=== PATIENT | female | born 1940 ===

== ENCOUNTER 2017-11-22 10:28 | Emergency (ER) | payer MEDICARE, MEDICAID ==
[2017-11-22 10:39] VITALS: BP 121/70; PULSE 83; RESP 20; TEMP 98.1; O2SAT 95
[2017-11-22 10:52] VITALS: BMI 28.3
[2017-11-22] MEDS ORDERED: Morphine 4 MG/ML VIAL ONE (11:21)
--- NOTE | 2017-11-22 11:25 | C.PDOC ---
History Of Present Illness 77-year-old female with known PMHx of sciatica, presents to the ED complaining of right-sided low back pain for 3 days. Pain radiates down the right leg and patient states it feels similar to prior episodes of sciatica. Patient reports no relief despite applying her Voltaren gel. Otherwise she denies any associated numbness, tingling, weakness, incontinence, dysuria, or abdominal pain. Time Seen by Provider: 11/22/17 11:02 Chief Complaint (Nursing): Back Pain History Per: Patient History/Exam Limitations: no limitations Onset/Duration Of Symptoms: Days (x3) Current Symptoms Are (Timing): Still Present Previous Symptoms: Back Pain Past Medical History Reviewed: Historical Data, Nursing Documentation, Vital Signs Vital Signs: Last Vital Signs Temp 98.1 F 11/22/17 10:38 Pulse 83 11/22/17 10:38 Resp 20 11/22/17 10:38 BP 121/70 11/22/17 10:38 Pulse Ox 95 11/22/17 12:24 - Medical History PMH: Arthritis, Asthma, Back Problems, Bronchitis, CAD, Cardiac Aneurysm, Colonic Polyps, COPD, Diabetes, Diverticulitis, Emphysema, Fractures (2 TOES ON LEFT FOOT FX. WITH FALL -NO SURGERY), Gastritis, HTN, Hypercholesterolemia, Osteoporosis, Pneumonia, Chronic Kidney Disease Surgical History: Appendectomy, Cholecystectomy, Coronary Stent, Endoscopy Family History: States: Unknown Family Hx - Social History Hx Tobacco Use: No Hx Alcohol Use: No Hx Substance Use: No - Immunization History Hx Tetanus Toxoid Vaccination: No Hx Influenza Vaccination: No Hx Pneumococcal Vaccination: Yes Review Of Systems Constitutional: Negative for: Fever, Chills Gastrointestinal: Negative for: Nausea, Vomiting, Abdominal Pain Genitourinary: Negative for: Dysuria, Frequency, Incontinence, Hematuria Musculoskeletal: Positive for: Back Pain Neurological: Negative for: Weakness, Numbness, Incoordination Physical Exam - Physical Exam Appears: Well, Non-toxic, No Acute Distress, Other (Obese) Skin: Warm, Dry Head: Atraumatic, Normacephalic Eye(s): bilateral: Normal Inspection Oral Mucosa: Moist Neck: Normal ROM Chest: Symmetrical Cardiovascular: Rhythm Regular, No Murmur Respiratory: Normal Breath Sounds, No Rales, No Rhonchi, No Wheezing Gastrointestinal/Abdominal: Bowel Sounds (active), Soft, No Tenderness, No Guarding Back: No CVA Tenderness, No Vertebral Tenderness, Paraspinal Tenderness (Right- sided paralumbar tenderness on palpation), Straight Leg Raising (+ right side at 45 degrees) Extremity: Bilateral: Atraumatic, Normal Color And Temperature, Normal ROM Neurological/Psych: Oriented x3, Normal Speech Gait: Steady ED Course And Treatment O2 Sat by Pulse Oximetry: 95 (RA) Pulse Ox Interpretation: Normal Medical Decision Making Medical Decision Making: Impression: Sciatica Plan: --Morphine 4 mg IM Progress/Updates: Patient continuing to complain of pain. Lidoderm patch applied. On re- examination, patient is resting comfortably in no acute distress. Patient reports improvement of symptoms. Patient feels comfortable going home and will be discharged. Patient given follow up instructions. Instructed to return to ER if symptoms worsen or new symptoms arise. Disposition Counseled Patient/Family Regarding: Diagnosis, Need For Followup - Disposition Referrals: Ry Suárez MD [Staff Provider] - Disposition: HOME/ ROUTINE Disposition Time: 12:23 Condition: STABLE Additional Instructions: Vaya a haque mdico o la clnica en 2-5 caicedo sin falta, para mas evaluacin. Volver a la monse de emergencia en cualquier momento si los sntomas persisten o empeoran. Instructions: Sciatica (DC) Forms: [employer] (Arabic) Print Language: CROATIAN - POA Present On Arrival: None - Clinical Impression Clinical Impression: Low back pain, Sciatica - PA / ENTERTAINER OR VARIETY ARTIST / Resident Statement MD/DO has reviewed & agrees with the documentation as recorded. - Scribe Statement The provider has reviewed the documentation as recorded by the Scribe (Patt Morataya) All medical record entries made by the Scribe were at my direction and personally dictated by me. I have reviewed the chart and agree that the record accurately reflects my personal performance of the history, physical exam, medical decision making, and the department course for this patient. I have also personally directed, reviewed, and agree with the discharge instructions and disposition.
[2017-11-22] MEDS ORDERED: Lidocaine 5% Patch TD STA (12:09)
[2017-11-22] MEDS ORDERED: Lidocaine 5% Patch TD ONE (12:13)
== END 2017-11-22 13:02 | disposition home or self-care (01) ==
LOC: C.ER 10:28
DX: M54.41 Lumbago with sciatica, right side (principal); E11.9 Type 2 diabetes mellitus without complications; I25.10 Atherosclerotic heart disease of native coronary artery without angina pectoris; J44.9 Chronic obstructive pulmonary disease, unspecified
CPT/HCPCS: 96372; 99284; J2270

== ENCOUNTER 2017-12-10 18:52 | Observation (INO) | payer MEDICARE, MEDICAID ==
[2017-12-10 19:01] VITALS: BMI 30.1
[2017-12-10 19:44] LABS: BASO # 0.1 K/uL (0.0-0.2); BASO % 0.9 % (0.0-2.0); EOS # 0.8 K/uL (0.0-0.7); EOS % 10.2 % (0.0-4.0); HEMOGLOBIN 14.3 g/dL (11.0-16.0); MEAN CELL VOLUME 93.8 fL (81.0-99.0); MEAN CORPUSCULAR HEMOGLOBIN 31.7 pg (27.0-31.0); MEAN CORPUSCULAR HGB CONC 33.8 g/dL (33.0-37.0); MEAN PLATELET VOLUME 9.2 fL (7.2-11.7); MONO # 0.6 K/uL (0.0-0.8); MONO % 7.9 % (0.0-10.0); RBC 4.51 Mil/uL (3.80-5.20); RED CELL DISTRIBUTION WIDTH 13.8 % (11.5-14.5); WHITE BLOOD COUNT 7.4 K/uL (4.8-10.8)
[2017-12-10 20:00] LABS: ALB/GLOB RATIO 1.2 (1.0-2.1); ALBUMIN 4.1 g/dL (3.5-5.0); ALT/SGPT 16 U/L (9-52); AST/SGOT 27 U/L (14-36); BLOOD UREA NITROGEN 25 mg/dL (7-17); CALCIUM 9.2 mg/dl (8.6-10.4); GFR NON-AFRICAN AMERICAN > 60
--- NOTE | 2017-12-10 20:23 | C.PDOC ---
History Of Present Illness 77 y/o female with PMHx of CAD presents accompanied by daughter for evaluation of chest pain, onset 3 days ago. Daughter at bedside notes the patient received bad news on , and the pain began the following day. Additionally patient reports frequent bruising diffusely throughout her body. She is on Coumadin, and reports compliance. Patient went to see her PMD today, who referred her to the ED. Otherwise patient denies any SOB, dizziness, visual loss, headaches, nausea, vomiting, diaphoresis, or palpitations. PMD: Dr. Suárez Time Seen by Provider: 12/10/17 19:45 Chief Complaint (Nursing): Chest Pain History Per: Patient History/Exam Limitations: no limitations Onset/Duration Of Symptoms: Days Current Symptoms Are (Timing): Still Present Past Medical History Reviewed: Historical Data, Nursing Documentation, Vital Signs Vital Signs: Last Vital Signs Temp 98.4 F 12/10/17 19:18 Pulse 84 12/10/17 19:18 Resp 20 12/10/17 19:18 BP 108/46 L 12/10/17 19:18 Pulse Ox 96 12/10/17 19:18 - Medical History PMH: Arthritis, Asthma, Back Problems, Bronchitis, CAD, Cardiac Aneurysm, Colonic Polyps, COPD, Diabetes, Diverticulitis, Emphysema, Fractures (2 TOES ON LEFT FOOT FX. WITH FALL -NO SURGERY), Gastritis, HTN, Hypercholesterolemia, Osteoporosis, Pneumonia, Chronic Kidney Disease Surgical History: Appendectomy, Cholecystectomy, Coronary Stent, Endoscopy Family History: States: Unknown Family Hx - Social History Hx Tobacco Use: No Hx Alcohol Use: No Hx Substance Use: No - Immunization History Hx Tetanus Toxoid Vaccination: No Hx Influenza Vaccination: No Hx Pneumococcal Vaccination: Yes Review Of Systems Except As Marked, All Systems Reviewed And Found Negative. Constitutional: Negative for: Fever, Sweats Eyes: Negative for: Vision Change ENT: Negative for: Nose Congestion Cardiovascular: Positive for: Chest Pain. Negative for: Palpitations Respiratory: Negative for: Cough, Shortness of Breath Gastrointestinal: Negative for: Nausea, Vomiting Neurological: Negative for: Weakness, Headache, Dizziness Physical Exam - Physical Exam Appears: Non-toxic, No Acute Distress Skin: Warm, Dry, Ecchymosis (noted to left ankle and left forearm) Head: Atraumatic, Normacephalic Eye(s): bilateral: Normal Inspection, PERRL, EOMI Oral Mucosa: Moist Neck: Normal ROM Chest: Symmetrical, No Tenderness Cardiovascular: Rhythm Regular, No Murmur Respiratory: Normal Breath Sounds, No Rales, No Rhonchi, No Wheezing Gastrointestinal/Abdominal: Soft, No Tenderness, No Distention Extremity: Bilateral: Atraumatic, Normal Color And Temperature, Normal ROM Pulses: Left Radial: Normal, Right Radial: Normal Neurological/Psych: Oriented x3, Normal Speech ED Course And Treatment - Laboratory Results Result Diagrams: 12/10/17 07:40 12/11/17 11:26 ECG: Interpreted By Me, Viewed By Me Interpretation Of ECG: Normal axis, Sinus arrhythmia Rate From EC (bpm) O2 Sat by Pulse Oximetry: 96 (RA) Pulse Ox Interpretation: Normal Medical Decision Making Medical Decision Making: Impression: 77 y/o with 4 days of chest pain Initial Plan: --EKG --CMP --Troponin I --CBC --PTT/PT --Chest x-ray --Of note patient is allergic to aspirin, therefore none given 20:38 Discussed with patient's primary, Dr. Suárez, who accepts patient for observation for chest pain. Disposition Counseled Patient/Family Regarding: Studies Performed, Diagnosis - Disposition Disposition: HOSPITALIZED Disposition Time: 20:38 Condition: STABLE - POA Core Measure Indicators: Chest Pain - Clinical Impression Clinical Impression: Chest pain - Scribe Statement The provider has reviewed the documentation as recorded by the Scribe (Patt Morataya) Provider Attestation: All medical record entries made by the Scribe were at my direction and personally dictated by me. I have reviewed the chart and agree that the record accurately reflects my personal performance of the history, physical exam, medical decision making, and the department course for this patient. I have also personally directed, reviewed, and agree with the discharge instructions and d isposition.
[2017-12-10 20:29] LABS: INR 2.1; PROTHROMBIN TIME 23.4 SECONDS (9.7-12.2)
[2017-12-11 04:50] LABS: CK-MB 1.05 ng/mL (0.0-3.38)
[2017-12-11 06:57] VITALS: RESP 20
[2017-12-11] MEDS: (Novolog) Insulin Aspart, Recombinant 100 u/ml 10 ml vial SC SCH ×4 (07:57→21:01)
--- NOTE | 2017-12-11 09:05 | RAD ---
Chest x-ray single frontal view HISTORY: Chest pain. COMPARISON: 06/06/2015 Findings: Biapical pleural thickening with upper lobe granulomatous changes. Prominent diffuse increased interstitial lung markings. Patchy increased markings at both lung bases. Calcification at the aortic knob. Tortuous ectatic aorta. Status post median sternotomy. Degenerative changes in the spine and shoulders. Impression: Biapical pleural thickening with upper lobe granulomatous changes. Prominent diffuse increased interstitial lung markings. Patchy increased markings at both lung bases. Calcification at the aortic knob. Tortuous ectatic aorta. Status post median sternotomy.
[2017-12-11] MEDS ORDERED: Home Med 1 UNIT (Lipase/Protease/Amylase [Creon Dr 12,000 Units Capsule] 1 EACH) PO SCH (10:00)
[2017-12-11] MEDS ORDERED: OLMESARTAN PO SCH (10:00)
[2017-12-11] MEDS ORDERED: (Lantus) Insulin Glargine, Recombinant SC SCH (10:00)
[2017-12-11] MEDS ORDERED: Fluticasone-Salmeterol 250-50mcg Diskus IH SCH (10:00)
[2017-12-11] MEDS ORDERED: CYCLOSPORINE OP SCH (10:00)
[2017-12-11] MEDS ORDERED: LISPRO SQ SCH (10:00)
[2017-12-11] MEDS ORDERED: INSULIN LISPRO PROTAMIN SQ SCH (10:00)
[2017-12-11] MEDS ORDERED: Home Med 1 UNIT (Umeclidinium Brm/Vilanterol Tr [Anoro Ellipta 62.5-25 Mcg Inh] 1 EACH) IH SCH ×2 (10:00)
[2017-12-11] MEDS ORDERED: [UNRECOGNIZED DRUG - OTHER] PO SCH (10:00)
[2017-12-11] MEDS ORDERED: Home Med 1 UNIT (Diclofenac Sodium [Voltaren] 100 GM) TP SCH ×2 (10:00→14:00)
[2017-12-11] MEDS ORDERED: Home Med 1 UNIT (Atorvastatin [Lipitor] 20 MG) PO SCH (10:00)
[2017-12-11] MEDS ORDERED: HYDROCHLOROTHIAZIDE PO SCH (10:00)
[2017-12-11 11:36] LABS: PROTHROMBIN TIME 21.9 SECONDS (9.7-12.2)
[2017-12-11 11:48] LABS: BLOOD UREA NITROGEN 22 mg/dL (7-17); CALCIUM 8.8 mg/dl (8.6-10.4); GFR NON-AFRICAN AMERICAN > 60
[2017-12-11 13:25] LABS: CK-MB 1.09 ng/mL (0.0-3.38)
--- NOTE | 2017-12-11 13:55 | CP.PCM.CON ---
History of Present Illness - History of Present Illness History of Present Illness: THe pt is a 77 year old woman, a smoker s/p CABG in 2005. She has a small AAA, 3.8 cm width, and had thrombus within, and is therefore on warfarin. Pt had a normal dobutamine stress echo in the office a year ago. The patient received news that her daughter of [place] in [place], and is very upset, tearful. Since hearing the news, she has had constant chest tightness, and also mid/left sided abdominal pain. She reports easy bruising in warfarin. Her at [facility], tni negative, ecg normal. Review of Systems - Review of Systems All systems: reviewed and no additional remarkable complaints except (as above. No fever, decent appetite.) Past Patient History - Past Medical History & Family History Past Medical History?: Yes - Past Social History Smoking Status: Light Smoker < 10 Cigarettes Daily - CARDIAC Hx Hypercholesterolemia: Yes Hx Hypertension: Yes - PULMONARY Hx Asthma: Yes Hx Bronchitis: Yes Hx Chronic Obstructive Pulmonary Disease (COPD): Yes Hx Emphysema: Yes Hx Pneumonia: Yes - NEUROLOGICAL Hx Neurological Disorder: No - HEENT Hx HEENT Problems: Yes Hx Cataracts: Yes (BILAT. IOL DONE) - RENAL Hx Chronic Kidney Disease: Yes - ENDOCRINE/METABOLIC Hx Endocrine Disorders: Yes Hx Diabetes Mellitus Type 2: Yes - HEMATOLOGICAL/ONCOLOGICAL Hx Blood Disorders: No - INTEGUMENTARY Hx Dermatological Problems: No - MUSCULOSKELETAL/RHEUMATOLOGICAL Hx Arthritis: Yes Hx Fractures: Yes (2 TOES ON LEFT FOOT FX. WITH FALL -NO SURGERY) Hx Osteoporosis: Yes - GASTROINTESTINAL Hx Diverticulitis: Yes Hx Gastritis: Yes - GENITOURINARY/GYNECOLOGICAL Hx Genitourinary Disorders: No - PSYCHIATRIC Hx Substance Use: No - SURGICAL HISTORY Hx Appendectomy: Yes Hx Cholecystectomy: Yes Hx Coronary Stent: Yes - ANESTHESIA Hx Anesthesia: Yes Hx Anesthesia Reactions: No Hx Malignant Hyperthermia: No Meds Allergies/Adverse Reactions: Allergies Allergy/AdvReac Type Severity Reaction Status Date / Time acetaminophen [From Percocet] Allergy Intermediate RASH Verified 11/22/17 10:51 moxifloxacin HCl Allergy Intermediate RASH Verified 12/10/17 19:10 [From Avelox] oxycodone HCl [From Percocet] Allergy Intermediate RASH Verified 12/10/17 19:10 prednisone Allergy Intermediate PAIN Verified 11/22/17 10:51 - Medications Medications: Current Medications Aspirin (Ecotrin) 81 mg PO DAILY [facility] Last Admin: 12/11/17 10:47 Dose: 81 mg Famotidine (Pepcid) 20 mg PO DAILY [facility] Last Admin: 12/11/17 10:47 Dose: 20 mg Fluticasone/Vilanterol (Breo Ellipta 100-25 Mcg Inh) 1 puff INH RQ24 [facility] Gabapentin (Neurontin) 300 mg PO DAILY [facility] Last Admin: 12/11/17 10:49 Dose: Not Given Home Med (Umeclidinium Brm/Vilanterol Tr [Anoro Ellipta 62.5-25 Mcg Inh]) 1 ea ch IH DAILY [facility] Home Med (Cyclosporine [Restasis Multidose]) 5.5 ml OP BID [facility] Home Med (Diclofenac Sodium [Voltaren]) 100 gm TP TID [facility] Home Med (Lipase/Protease/Amylase [Creon Dr 12,000 Units Capsule]) 1 each PO TID [facility] Home Med (Insulin Lispro Protamin/Lispro [Humalog Mix 75-25 Kwikpen]) 50 unit SQ DAILY [facility] Hydrochlorothiazide (Microzide) 12.5 mg PO DAILY [facility] Last Admin: 12/11/17 10:47 Dose: 12.5 mg Insulin Aspart (Novolog) 0 unit SC [facility]; Protocol Last Admin: 12/11/17 11:50 Dose: Not Given Insulin Glargine (Lantus) 20 unit SC [facility] Losartan Potassium (Cozaar) 50 mg PO DAILY [facility] Last Admin: 12/11/17 10:47 Dose: 50 mg Montelukast Sodium (Singulair) 10 mg PO HS [facility] Rosuvastatin Calcium (Crestor) 10 mg PO HS [facility] Warfarin Sodium (Coumadin) 2.5 mg PO DAILY@1800 [facility] Stop: 12/11/17 18:01 Physical Exam - Constitutional Appears: No Acute Distress - Head Exam Head Exam: ATRAUMATIC - Eye Exam Eye Exam: EOMI - ENT Exam ENT Exam: Mucous Membranes Moist - Respiratory Exam Respiratory Exam: Clear to Auscultation Bilateral - Cardiovascular Exam Cardiovascular Exam: REGULAR RHYTHM - GI/Abdominal Exam GI & Abdominal Exam: Normal Bowel Sounds - Exam External exam: NORMAL EXTERNAL EXAM - Extremities Exam Extremities exam: Positive for: normal inspection - Back Exam Back exam: NORMAL INSPECTION - Neurological Exam Neurological exam: Alert, CN II-XII Intact, Oriented x3 - Skin Skin Exam: Normal Color Results - Vital Signs Recent Vital Signs: Last Vital Signs Temp 98.1 F 12/11/17 07:00 Pulse 59 L 12/11/17 07:06 Resp 20 12/11/17 07:00 BP 107/64 12/11/17 07:00 Pulse Ox 98 12/11/17 07:00 - Labs Result Diagrams: 12/10/17 07:40 12/11/17 11:26 Labs: Laboratory Results - last 24 hr 12/10/17 12/10/17 12/10/17 07:40 07:40 19:30 WBC 7.4 RBC 4.51 Hgb 14.3 Hct 42.3 MCV 93.8 MCH 31.7 H MCHC 33.8 RDW 13.8 Plt Count 224 MPV 9.2 Neut % (Auto) 54.0 Lymph % (Auto) 27.0 [place] % (Auto) 7.9 Eos % (Auto) 10.2 H Baso % (Auto) 0.9 Neut # (Auto) 4.0 Lymph # (Auto) 2.0 [place] # (Auto) 0.6 Eos # (Auto) 0.8 H Baso # (Auto) 0.1 PT INR APTT Sodium 142 Potassium 3.4 L Chloride 102 Carbon Dioxide 30 Anion Gap 14 BUN 25 H Creatinine 0.9 Est GFR ( Amer) > 60 Est GFR (Non-Af Amer) > 60 POC Glucose (mg/dL) 199 H Random Glucose 173 H Calcium 9.2 Total Bilirubin 0.4 AST 27 ALT 16 Alkaline Phosphatase 59 Total Creatine Kinase CK-MB (Mass) Troponin I < 0.0120 Total Protein 7.6 Albumin 4.1 Globulin 3.5 Albumin/Globulin Ratio 1.2 12/10/17 12/11/17 12/11/17 20:07 04:23 06:53 WBC RBC Hgb Hct MCV MCH MCHC RDW Plt Count MPV Neut % (Auto) Lymph % (Auto) [place] % (Auto) Eos % (Auto) Baso % (Auto) Neut # (Auto) Lymph # (Auto) [place] # (Auto) Eos # (Auto) Baso # (Auto) PT 23.4 H INR 2.1 APTT 45 H Sodium Potassium Chloride Carbon Dioxide Anion Gap BUN Creatinine Est GFR ( Amer) Est GFR (Non-Af Amer) POC Glucose (mg/dL) 103 Random Glucose Calcium Total Bilirubin AST ALT Alkaline Phosphatase Total Creatine Kinase 74 CK-MB (Mass) 1.05 Troponin I < 0.0120 Total Protein Albumin Globulin Albumin/Globulin Ratio 12/11/17 12/11/17 12/11/17 11:26 11:26 13:01 WBC RBC Hgb Hct MCV MCH MCHC RDW Plt Count MPV Neut % (Auto) Lymph % (Auto) [place] % (Auto) Eos % (Auto) Baso % (Auto) Neut # (Auto) Lymph # (Auto) [place] # (Auto) Eos # (Auto) Baso # (Auto) PT 21.9 H INR 2.0 APTT Sodium 141 Potassium 3.9 Chloride 104 Carbon Dioxide 29 Anion Gap 11 BUN 22 H Creatinine 0.7 Est GFR ( Amer) > 60 Est GFR (Non-Af Amer) > 60 POC Glucose (mg/dL) Random Glucose 142 H Calcium 8.8 Total Bilirubin AST ALT Alkaline Phosphatase Total Creatine Kinase 71 CK-MB (Mass) 1.09 Troponin I < 0.0120 Total Protein Albumin Globulin Albumin/Globulin Ratio - EKG Data EKG Interpreted by: Myself EKG shows normal: Sinus rhythm Rate: Normal (normal as by me) Assessment & Plan - Assessment and Plan (Free Text) Assessment: 1. Although pt has known CAD, symptoms are at rest, constant and atypical. ECG and TNI are normal.Chest pain is non anginal. 2. INR is therapeutic 3. Pt has non specific abdominal pain: No evidence of acute abdomen. Has not lost appetite.
[2017-12-11] MEDS: LIPASE/PROTEASE/AMYLASE 4,200 U ECC PO SCH ×2 (14:54→17:57)
[2017-12-11] MEDS ORDERED: Lubricant Eye Drops UD OU PRN (16:15)
--- NOTE | 2017-12-11 16:35 | CP.PCM.CON ---
History of Present Illness - History of Present Illness History of Present Illness: reason for consultation: COPD and chest pain Pt is a 74yo F with pmhx of COPD, triple bypass s/p [place] (13yrs ago), DM, HTN, arthritis, presenting for chest pain. The patient received news that her daughter of [place] in [place], and is very upset. Since hearing the news, she has had constant chest tightness, and also mid/left sided abdominal pain. PMHx: asthma, [place], DM, HTN, arthritis PSHx: triple bypass (11yrs ago), cholecystectomy (Dec 2014), appendectomy FHx: father & mother - [place] (both passed when pt was child) 3 brothers - [place] Social Hx: smokes 5 cigs/day x 57yrs, denies alcohol and illicit drug use, lives alone in senior housing community Allergies: acetaminophen, moxifloxacin, oxycodone, prednisone Review of Systems - Review of Systems All systems: reviewed and no additional remarkable complaints except (CHEST PAIN) Past Patient History - Past Medical History & Family History Past Medical History?: Yes - Past Social History Smoking Status: Light Smoker < 10 Cigarettes Daily - CARDIAC Hx Hypercholesterolemia: Yes Hx Hypertension: Yes - PULMONARY Hx Asthma: Yes Hx Bronchitis: Yes Hx Chronic Obstructive Pulmonary Disease (COPD): Yes Hx Emphysema: Yes Hx Pneumonia: Yes - NEUROLOGICAL Hx Neurological Disorder: No - HEENT Hx HEENT Problems: Yes Hx Cataracts: Yes (BILAT. IOL DONE) - RENAL Hx Chronic Kidney Disease: Yes - ENDOCRINE/METABOLIC Hx Endocrine Disorders: Yes Hx Diabetes Mellitus Type 2: Yes - HEMATOLOGICAL/ONCOLOGICAL Hx Blood Disorders: No - INTEGUMENTARY Hx Dermatological Problems: No - MUSCULOSKELETAL/RHEUMATOLOGICAL Hx Arthritis: Yes Hx Fractures: Yes (2 TOES ON LEFT FOOT FX. WITH FALL -NO SURGERY) Hx Osteoporosis: Yes - GASTROINTESTINAL Hx Diverticulitis: Yes Hx Gastritis: Yes - GENITOURINARY/GYNECOLOGICAL Hx Genitourinary Disorders: No - PSYCHIATRIC Hx Substance Use: No - SURGICAL HISTORY Hx Appendectomy: Yes Hx Cholecystectomy: Yes Hx Coronary Stent: Yes - ANESTHESIA Hx Anesthesia: Yes Hx Anesthesia Reactions: No Hx Malignant Hyperthermia: No Meds Allergies/Adverse Reactions: Allergies Allergy/AdvReac Type Severity Reaction Status Date / Time acetaminophen [From Percocet] Allergy Intermediate RASH Verified 11/22/17 10:51 moxifloxacin HCl Allergy Intermediate RASH Verified 12/10/17 19:10 [From Avelox] oxycodone HCl [From Percocet] Allergy Intermediate RASH Verified 12/10/17 19:10 prednisone Allergy Intermediate PAIN Verified 11/22/17 10:51 - Medications Medications: Current Medications Artificial Tears (Refresh Opth Soln) 0 ml OU BID PRN PRN Reason: dry eyes Aspirin (Ecotrin) 81 mg PO DAILY [facility] Last Admin: 12/11/17 10:47 Dose: 81 mg Famotidine (Pepcid) 20 mg PO DAILY [facility] Last Admin: 12/11/17 10:47 Dose: 20 mg Fluticasone/Vilanterol (Breo Ellipta 100-25 Mcg Inh) 1 puff INH RQ24 [facility] Gabapentin (Neurontin) 300 mg PO DAILY [facility] Last Admin: 12/11/17 10:49 Dose: Not Given Hydrochlorothiazide (Microzide) 12.5 mg PO DAILY [facility] Last Admin: 12/11/17 10:47 Dose: 12.5 mg Influenza Virus Vaccine (Fluzone Quad [id number]) 60 mcg IM .ONCE ONE Stop: 12/12/17 10:01 Insulin Aspart (Novolog) 0 unit SC [facility]; Protocol Last Admin: 12/11/17 11:50 Dose: Not Given Insulin Aspart (Novolog Mix 70/30 (70/30 Units/Ml)) 50 units SC DAILY [facility] Insulin Glargine (Lantus) 20 unit SC [facility] Losartan Potassium (Cozaar) 50 mg PO DAILY [facility] Last Admin: 12/11/17 10:47 Dose: 50 mg Montelukast Sodium (Singulair) 10 mg PO [facility] Rosuvastatin Calcium (Crestor) 10 mg PO HS [facility] Warfarin Sodium (Coumadin) 2.5 mg PO DAILY@1800 [facility] Stop: 12/11/17 18:01 Physical Exam - Head Exam Head Exam: ATRAUMATIC, NORMOCEPHALIC - ENT Exam ENT Exam: Mucous Membranes Moist - Neck Exam Neck exam: Positive for: Normal Inspection - Respiratory Exam Respiratory Exam: Decreased Breath Sounds - Cardiovascular Exam Cardiovascular Exam: REGULAR RHYTHM - GI/Abdominal Exam GI & Abdominal Exam: Normal Bowel Sounds, Soft - Extremities Exam Extremities exam: Positive for: normal inspection Results - Vital Signs Recent Vital Signs: Last Vital Signs Temp 98.1 F 12/11/17 07:00 Pulse 58 L 12/11/17 07:15 Resp 20 12/11/17 07:00 BP 107/64 12/11/17 07:00 Pulse Ox 98 12/11/17 10:00 - Labs Result Diagrams: 12/10/17 07:40 12/11/17 11:26 Labs: Laboratory Results - last 24 hr 12/10/17 12/10/17 12/10/17 07:40 07:40 19:30 WBC 7.4 RBC 4.51 Hgb 14.3 Hct 42.3 MCV 93.8 MCH 31.7 H MCHC 33.8 RDW 13.8 Plt Count 224 MPV 9.2 Neut % (Auto) 54.0 Lymph % (Auto) 27.0 [place] % (Auto) 7.9 Eos % (Auto) 10.2 H Baso % (Auto) 0.9 Neut # (Auto) 4.0 Lymph # (Auto) 2.0 [place] # (Auto) 0.6 Eos # (Auto) 0.8 H Baso # (Auto) 0.1 PT INR APTT Sodium 142 Potassium 3.4 L Chloride 102 Carbon Dioxide 30 Anion Gap 14 BUN 25 H Creatinine 0.9 Est GFR ( Amer) > 60 Est GFR (Non-Af Amer) > 60 POC Glucose (mg/dL) 199 H Random Glucose 173 H Calcium 9.2 Total Bilirubin 0.4 AST 27 ALT 16 Alkaline Phosphatase 59 Total Creatine Kinase CK-MB (Mass) Troponin I < 0.0120 Total Protein 7.6 Albumin 4.1 Globulin 3.5 Albumin/Globulin Ratio 1.2 12/10/17 12/11/17 12/11/17 20:07 04:23 06:53 WBC RBC Hgb Hct MCV MCH MCHC RDW Plt Count MPV Neut % (Auto) Lymph % (Auto) [place] % (Auto) Eos % (Auto) Baso % (Auto) Neut # (Auto) Lymph # (Auto) [place] # (Auto) Eos # (Auto) Baso # (Auto) PT 23.4 H INR 2.1 APTT 45 H Sodium Potassium Chloride Carbon Dioxide Anion Gap BUN Creatinine Est GFR ( Amer) Est GFR (Non-Af Amer) POC Glucose (mg/dL) 103 Random Glucose Calcium Total Bilirubin AST ALT Alkaline Phosphatase Total Creatine Kinase 74 CK-MB (Mass) 1.05 Troponin I < 0.0120 Total Protein Albumin Globulin Albumin/Globulin Ratio 12/11/17 12/11/17 12/11/17 11:07 11:26 11:26 WBC RBC Hgb Hct MCV MCH MCHC RDW Plt Count MPV Neut % (Auto) Lymph % (Auto) [place] % (Auto) Eos % (Auto) Baso % (Auto) Neut # (Auto) Lymph # (Auto) [place] # (Auto) Eos # (Auto) Baso # (Auto) PT 21.9 H INR 2.0 APTT Sodium 141 Potassium 3.9 Chloride 104 Carbon Dioxide 29 Anion Gap 11 BUN 22 H Creatinine 0.7 Est GFR ( Amer) > 60 Est GFR (Non-Af Amer) > 60 POC Glucose (mg/dL) 125 H Random Glucose 142 H Calcium 8.8 Total Bilirubin AST ALT Alkaline Phosphatase Total Creatine Kinase CK-MB (Mass) Troponin I Total Protein Albumin Globulin Albumin/Globulin Ratio 12/11/17 13:01 WBC RBC Hgb Hct MCV MCH MCHC RDW Plt Count MPV Neut % (Auto) Lymph % (Auto) [place] % (Auto) Eos % (Auto) Baso % (Auto) Neut # (Auto) Lymph # (Auto) [place] # (Auto) Eos # (Auto) Baso # (Auto) PT INR APTT Sodium Potassium Chloride Carbon Dioxide Anion Gap BUN Creatinine Est GFR ( Amer) Est GFR (Non-Af Amer) POC Glucose (mg/dL) Random Glucose Calcium Total Bilirubin AST ALT Alkaline Phosphatase Total Creatine Kinase 71 CK-MB (Mass) 1.09 Troponin I < 0.0120 Total Protein Albumin Globulin Albumin/Globulin Ratio Assessment & Plan (1) Chronic obstructive lung disease Status: Acute Comment: NEBULIZER TREATMENT. BREOELLIPTA. CARDIOLOGY W/U
--- NOTE | 2017-12-11 16:58 | CT ---
Date of service: 12/11/17 CT chest without IV contrast Indication: Dyspnea, pneumonia Technique: Contiguous axial images were obtained through the chest without intravenous contrast enhancement. Sagittal and coronal reconstructions were generated and reviewed. This CT exam was performed using 1 or more of the following dose reduction techniques: Automated exposure control, adjustment of the MAA and/or kV according to patient size, and/or use of iterative reconstruction technique. Radiation dose (DLP): 298.30 MGy-cm. Comparison: CT chest without contrast performed 06/06/15 Findings: Visualized portions of the inferior thyroid gland appear unremarkable. The mediastinal and hilar vascular structures appear within normal limits. The heart appears within normal limits of size. Dense coronary artery calcifications. Atherosclerotic calcifications of the aorta. Prominent sub cm mediastinal adenopathy including nodes containing calcifications. Tiny right hilar calcified nodes. Emphysematous changes. Re-identified chronic peribronchial thickening and increased interstitial markings at the lung bases likely related to chronic lung disease. Patchy right basilar atelectasis. No pleural effusion. No pneumothorax. Limited visualization of the noncontrast upper abdomen; partially imaged 10 mm hyperdense right midpole exophytic lesion. Partially imaged 8 mm hypodense exophytic left renal lesion. 6 mm hyperdense left upper pole focus. 4 mm left upper pole hypodensity. 7 mm probable splenule. Degenerative changes. Osseous demineralization. Median sternotomy wires. Impression: Emphysematous changes. Evidence of chronic lung disease. Patchy right basilar atelectasis. Evidence of prior granulomatous infection. Limited visualization of the noncontrast upper abdomen; partially imaged 10 mm hyperdense right midpole exophytic lesion. Partially imaged 8 mm hypodense exophytic left renal lesion. 6 mm hyperdense left upper pole focus. 4 mm left upper pole hypodensity. 7 mm probable splenule.
[2017-12-11] MEDS: (Lantus) Insulin Glargine, Recombinant SC SCH (21:18)
[2017-12-12] MEDS: Albuterol-Ipratrop 3 mg / 0.5 (3 ml) UD INH SCH ×4 (01:04→19:55)
--- NOTE | 2017-12-12 07:14 | HP ---
HISTORY OF PRESENT ILLNESS: This is a 77-year-old female with history of multiple medical problems, presented to my office on the day of admission with symptoms of chest pain. The patient was not in any cardiopulmonary distress and her symptoms were not associated with any palpitation or shortness of breath. The patient was evaluated in the emergency room, and due to her multiple risk factors, she was admitted for further management and Cardiology consultation was called. PAST MEDICAL HISTORY: 1. Hypertension. 2. Type 2 diabetes mellitus. 3. Rheumatoid arthritis. 4. Coronary artery disease, status post coronary artery bypass graft. FAMILY HISTORY: Noncontributory. SOCIAL HISTORY: Positive history of smoking. No EtOH or substance abuse. REVIEW OF SYSTEMS: Other review of systems is positive knee pain and positive exertional shortness of breath. Otherwise, review of systems is negative. ALLERGIES: NO KNOWN ALLERGIES. MEDICATIONS: Were reviewed as per MAR. PHYSICAL EXAMINATION GENERAL: The patient is in bed, not in any cardiopulmonary distress. VITAL SIGNS: Blood pressure 130/70, temperature 98.4, respiratory rate 18, and pulse 76. HEENT: Pupils equal, and reactive to light. Normal-appearing mucosa of the conjunctivae, oropharynx, and nasal membrane mucosa. NECK: Supple. No JVD. No carotid bruit. No lymph node. No thyromegaly. CARDIOVASCULAR SYSTEM: PMI not localized. S1, S2. No additional sounds. CHEST AND LUNGS: Bilateral symmetrical expansion. Good air exchange. No rales, no rhonchi. ABDOMEN: Normoactive bowel sounds. No tenderness. No organomegaly. No masses. EXTREMITIES: No cyanosis, no clubbing, no edema. MEDIA MARKETING MANAGER: Alert, awake, and oriented x2. No neurological deficits could be appreciated. ASSESSMENT: 1. Chest pain, myocardial infarction is ruled out. 2. Coronary artery bypass graft, status post coronary artery bypass graft. 3. Hypertension. 4. Type 2 diabetes mellitus. 5. Osteoarthritis. 6. Rheumatoid arthritis. PLAN: Follow Cardiology recommendations. Echocardiogram. We will repeat the CAT scan of the chest, Dr. Leija for Pulmonary consult. Resume the patient's home medications. The patient can be discharged after he would be cleared by both Cardiology and Pulmonary. Ry Suárez MD
[2017-12-12] MEDS: (Novolog) Insulin Aspart, Recombinant 100 u/ml 10 ml vial SC SCH ×4 (07:40→21:52)
[2017-12-12] MEDS: LIPASE/PROTEASE/AMYLASE 4,200 U ECC PO SCH ×3 (08:12→18:00)
[2017-12-12] MEDS ORDERED: (Novolog Mix 70/30) Insulin Aspart/Insulin Aspar 100 units/ml SC SCH (10:00)
[2017-12-12] MEDS ORDERED: Influenza Vaccine 60 MCG/0.5 ML SYR (3 yr & up) IM ONE (10:00)
--- NOTE | 2017-12-12 10:48 | CP.PCM.PN ---
Subjective - Date & Time of Evaluation Date of Evaluation: 12/12/17 Time of Evaluation: 10:46 - Subjective Subjective: Pt feels OK. Echo is normal. TNi negative., Objective - Vital Signs/Intake and Output Vital Signs (last 24 hours): Temp Pulse Resp BP Pulse Ox 98.0 F 57 L 20 130/56 L 98 12/12/17 08:49 12/12/17 09:35 12/12/17 08:49 12/12/17 09:35 12/12/17 08:49 - Medications Medications: Current Medications Albuterol/Ipratropium (Duoneb 3 Mg/0.5 Mg (3 Ml) Ud) 3 ml INH RQ6 [facility] Last Admin: 12/12/17 07:18 Dose: Not Given Artificial Tears (Refresh Opth Soln) 0 ml OU BID PRN PRN Reason: dry eyes Aspirin (Ecotrin) 81 mg PO DAILY [facility] Last Admin: 12/12/17 09:36 Dose: 81 mg Famotidine (Pepcid) 20 mg PO DAILY [facility] Last Admin: 12/12/17 09:36 Dose: 20 mg Fluticasone/Vilanterol (Breo Ellipta 100-25 Mcg Inh) 1 puff INH RQ24 [facility] Gabapentin (Neurontin) 300 mg PO DAILY [facility] Last Admin: 12/12/17 09:36 Dose: 300 mg Hydrochlorothiazide (Microzide) 12.5 mg PO DAILY [facility] Last Admin: 12/12/17 09:36 Dose: 12.5 mg Insulin Aspart (Novolog) 0 unit SC [facility]; Protocol Last Admin: 12/12/17 07:40 Dose: Not Given Insulin Aspart (Novolog Mix 70/30 (70/30 Units/Ml)) 50 units SC DAILY [facility] Last Admin: 12/12/17 09:37 Dose: Not Given Insulin Glargine (Lantus) 20 unit SC [facility] Last Admin: 12/11/17 21:18 Dose: 20 unit Losartan Potassium (Cozaar) 50 mg PO DAILY [facility] Last Admin: 12/12/17 09:36 Dose: 50 mg Montelukast Sodium (Singulair) 10 mg PO HS [facility] Last Admin: 12/11/17 21:18 Dose: 10 mg Rosuvastatin Calcium (Crestor) 10 mg PO [facility] Last Admin: 10/02/18 21:18 Dose: 10 mg - Labs Labs: 12/10/17 07:40 12/11/17 11:26 PT 21.9 SECONDS (9.7-12.2) H 12/11/17 11:26 INR 2.0 12/11/17 11:26 APTT 45 SECONDS (21-34) H 12/10/17 20:07 - Constitutional Appears: Well - Head Exam Head Exam: NORMAL INSPECTION - Eye Exam Eye Exam: EOMI - ENT Exam ENT Exam: Mucous Membranes Moist - Neck Exam Neck Exam: Full ROM - Respiratory Exam Respiratory Exam: Clear to Ausculation Bilateral - Cardiovascular Exam Cardiovascular Exam: REGULAR RHYTHM - GI/Abdominal Exam GI & Abdominal Exam: Normal Bowel Sounds - Exam External exam: NORMAL EXTERNAL EXAM - Extremities Exam Extremities Exam: Normal Inspection - Back Exam Back Exam: NORMAL INSPECTION - Neurological Exam Neurological Exam: Alert, Awake, Normal Gait - Psychiatric Exam Psychiatric exam: Anxious - Skin Skin Exam: Normal Color Assessment and Plan - Assessment and Plan (Free Text) Assessment: P has stable CAD, non anginal chest pain. Echo/ECG troponin normal. INR low normal. Continue coumadin
[2017-12-12] MEDS: Fluticasone-Vilanterol 100/25mcg Diskus INH SCH (11:29)
[2017-12-12] MEDS: (Novolog Mix 70/30) Insulin Aspart/Insulin Aspar 100 units/ml SC SCH (11:59)
--- NOTE | 2017-12-12 12:32 | CARD ---
APPROVED REPORT Date of service: 12/10/2017 EKG Measurement Heart [id number] <Conclusion> Sinus rhythm with marked sinus arrhythmia Otherwise normal ECG
--- NOTE | 2017-12-12 13:22 | CARD ---
APPROVED REPORT Date of service: 12/11/2017 EKG Measurement Heart [id number] <Conclusion> Sinus bradycardia Otherwise normal ECG
[2017-12-12 13:57] LABS: INR 1.7; PROTHROMBIN TIME 19.1 SECONDS (9.7-12.2)
--- NOTE | 2017-12-12 14:28 | CARD ---
APPROVED REPORT Date of service: 12/12/2017 EXAM: Two-dimensional and M-mode echocardiogram with Doppler and color Doppler. Other Information Quality : GoodRhythm : INDICATION Dyspnea Cardiac Disease: CAD Chest Pain RISK FACTORS Hypertension Hyperlipidemia Diabetes 2D DIMENSIONS IVSd1.0 (0.7-1.1cm)Aortic Root (2D)2.9 (2.0-3.7cm) LVDd3.7 (3.9-5.9cm)PWd1.2 (0.7-1.1cm) LA Pczzsv78 (18-58mL)LVDs2.4 (2.5-4.0cm) FS (%) 33.5 %LVEF (%)63.2 (>50%) LVEF (Easley's)60 %IVC0.00 cm M-Mode DIMENSIONS Left Atrium (MM)3.68 (2.5-4.0cm)IVSd0.83 (0.7-1.1cm) Aortic Root2.92 (2.2-3.7cm)LVDd4.65 (4.0-5.6cm) Aortic Cusp Exc.1.60 (1.5-2.0cm)PWd1.08 (0.7-1.1cm) FS (%) 45 %LVDs2.57 (2.0-3.8cm) LVEF (%)65 (>50%) Mitral Valve MV E Hyectfzg50.5cm/sMV A Rlrykpaj27.5cm/sE/A ratio2.1 TDI Lateral E' Peak V6.80cm/sMedial E' Peak V6.16cm/sE/Lateral E'14.0 E/Medial E'15.5 Tricuspid Valve TR Peak [id number]/sTR Peak Gr.43oyCuUYLE65hpRq LEFT VENTRICLE The left ventricle is normal size. There is normal left ventricular wall thickness. The left ventricular function is normal. The left ventricular ejection fraction is within the normal range. Visually, 60% No regional wall motion abnormalities noted. The left ventricular diastolic function is indeterminate. No left ventricle thrombus noted on this study. There is no ventricular septal defect visualized. There is no left ventricular aneurysm. There is no mass noted in the left ventricle. RIGHT VENTRICLE The right ventricle is normal size. There is normal right ventricular wall thickness. The right ventricular systolic function is normal. ATRIA The left atrium size is normal. The right atrium size is normal. The interatrial septum is intact with no evidence for an atrial septal defect. AORTIC VALVE The aortic valve is normal in structure and function. No aortic regurgitation is present. There is no aortic valvular stenosis. There is no aortic valvular vegetation. MITRAL VALVE The mitral valve is normal in structure and function. There is no evidence of mitral valve prolapse. There is no mitral valve stenosis. There is no mitral valve regurgitation noted. TRICUSPID VALVE The tricuspid valve is normal in structure and function. There is mild tricuspid valve regurgitation noted. There is no tricuspid valve prolapse or vegetation. There is no tricuspid valve stenosis. PULMONIC VALVE The pulmonary valve is normal in structure and function. There is no pulmonic valvular regurgitation. There is no pulmonic valvular stenosis. GREAT VESSELS The aortic root is normal in size. The ascending aorta is normal in size. The pulmonary artery is normal. The IVC is normal in size and collapses >50% with inspiration. PERICARDIAL EFFUSION The pericardium appears normal. There is no pleural effusion. <Conclusion> Normal LV systolic function and wall motion. Normal Doppler.
--- NOTE | 2017-12-12 15:50 | CP.PCM.PN ---
Subjective - Date & Time of Evaluation Date of Evaluation: 12/12/17 Time of Evaluation: 11:50 - Subjective Subjective: patient seen and examined Dyspnea on exertion No chest pain Echocardiogram normal Afebrile Objective - Vital Signs/Intake and Output Vital Signs (last 24 hours): Temp Pulse Resp BP Pulse Ox 98.0 F 69 20 130/56 L 98 12/12/17 08:49 12/12/17 13:05 12/12/17 08:49 12/12/17 09:35 12/12/17 08:49 - Medications Medications: Current Medications Albuterol/Ipratropium (Duoneb 3 Mg/0.5 Mg (3 Ml) Ud) 3 ml INH RQ6 [facility] Last Admin: 12/12/17 11:29 Dose: 3 ml Artificial Tears (Refresh Opth Soln) 0 ml OU BID PRN PRN Reason: dry eyes Aspirin (Ecotrin) 81 mg PO DAILY [facility] Last Admin: 12/12/17 09:36 Dose: 81 mg Famotidine (Pepcid) 20 mg PO DAILY [facility] Last Admin: 12/12/17 09:36 Dose: 20 mg Fluticasone/Vilanterol (Breo Ellipta 100-25 Mcg Inh) 1 puff INH RQ24 [facility] Last Admin: 12/12/17 11:29 Dose: 1 puff Gabapentin (Neurontin) 300 mg PO DAILY [facility] Last Admin: 12/12/17 09:36 Dose: 300 mg Hydrochlorothiazide (Microzide) 12.5 mg PO DAILY [facility] Last Admin: 12/12/17 09:36 Dose: 12.5 mg Insulin Aspart (Novolog) 0 unit SC [facility]; Protocol Last Admin: 12/12/17 11:38 Dose: Not Given Insulin Aspart (Novolog Mix 70/30 (70/30 Units/Ml)) 20 units SC DAILY [facility] Last Admin: 12/12/17 11:59 Dose: 20 units Insulin Glargine (Lantus) 20 unit SC [facility] Last Admin: 12/11/17 21:18 Dose: 20 unit Losartan Potassium (Cozaar) 50 mg PO DAILY [facility] Last Admin: 12/12/17 09:36 Dose: 50 mg Montelukast Sodium (Singulair) 10 mg PO [facility] Last Admin: 12/11/17 21:18 Dose: 10 mg Rosuvastatin Calcium (Crestor) 10 mg PO [facility] Last Admin: 12/11/17 21:18 Dose: 10 mg - Labs Labs: 12/10/17 07:40 12/11/17 11:26 PT 19.1 SECONDS (9.7-12.2) H 12/12/17 13:47 INR 1.7 12/12/17 13:47 APTT 45 SECONDS (21-34) H 12/10/17 20:07 - Head Exam Head Exam: ATRAUMATIC, NORMOCEPHALIC - ENT Exam ENT Exam: Mucous Membranes Moist - Neck Exam Neck Exam: Normal Inspection - Respiratory Exam Respiratory Exam: Decreased Breath Sounds - Cardiovascular Exam Cardiovascular Exam: REGULAR RHYTHM - GI/Abdominal Exam GI & Abdominal Exam: Soft Assessment and Plan (1) Chronic obstructive lung disease Assessment & Plan: stable from pulmonary standpoint Continue home medication Follow-up in the office Status: Acute
[2017-12-12] MEDS ORDERED: Iodixanol 320 MG/ML 100 ML BOTTLE IV ONE (17:25)
[2017-12-12] MEDS: Sodium Chloride 0.9% 1,000 ML IV SCH (18:03)
[2017-12-12] MEDS: (Lantus) Insulin Glargine, Recombinant SC SCH ×2 (21:51→21:55)
--- NOTE | 2017-12-13 00:33 | PN ---
DATE: 12/12/2017 SUBJECTIVE: The patient is seen today 12/12/2017. She is not in any cardiopulmonary distress. The patient was seen by both Cardiology and Pulmonary. PHYSICAL EXAMINATION: VITAL SIGNS: Blood pressure is 130/56, temperature 98, respiratory rate 20, and pulse 57. HEENT: Pupils equal, reactive to light. Normal-appearing mucosa of the conjunctivae, oropharynx and nasal membrane mucosa. NECK: Supple. No JVD. No carotid bruit or lymph node. No thyromegaly. CARDIOPULMONARY: PMI not localized. S1, S2. No additional sounds. CHEST: Lungs, bilateral symmetrical expansion. Good air exchange. No rales, no rhonchi. ABDOMEN: Normoactive bowel sounds. No tenderness. No organomegaly. No masses. EXTREMITIES: No cyanosis, no clubbing, no edema. AUTOMOBILE BUMPER STRAIGHTENER: Alert, awake, oriented x2. No neurological deficit could be appreciated. ASSESSMENT: 1. Chronic obstructive pulmonary disease. 2. Chest pain, myocardial infarction ruled out. 3. Emphysema. 4. Bilateral renal questionable cysts. PLAN: We will do a CAT scan of the abdomen with IV contrast; continue current medications, we will give Coumadin 3 mg tonight. Start IV fluid. Ry Suárez MD
[2017-12-13] MEDS: Albuterol-Ipratrop 3 mg / 0.5 (3 ml) UD INH SCH ×3 (02:45→13:12)
[2017-12-13] MEDS: Sodium Chloride 0.9% 1,000 ML IV SCH (05:38)
[2017-12-13] MEDS: Fluticasone-Vilanterol 100/25mcg Diskus INH SCH (07:36)
[2017-12-13] MEDS: LIPASE/PROTEASE/AMYLASE 4,200 U ECC PO SCH ×2 (08:29→12:14)
[2017-12-13] MEDS: (Novolog) Insulin Aspart, Recombinant 100 u/ml 10 ml vial SC SCH ×2 (08:30→12:16)
[2017-12-13 08:38] LABS: INR 1.7; PROTHROMBIN TIME 18.6 SECONDS (9.7-12.2)
[2017-12-13 08:43] VITALS: BP 124/64; PULSE 56; TEMP 97.9; O2SAT 97
--- NOTE | 2017-12-13 11:50 | CT ---
Date of service: 12/12/2017 PROCEDURE: CT Abdomen and Pelvis with contrast HISTORY: Renal masses COMPARISON: Abdominal ultrasound performed 12/12/17, CT abdomen and pelvis with IV contrast performed 11/29/16 TECHNIQUE: Contrast dose: 100 mL Visipaque IV Radiation dose: Total exam DLP = 507.97 mGy-cm. This CT exam was performed using one or more of the following dose reduction techniques: Automated exposure control, adjustment of the mA and/or kV according to patient size, and/or use of iterative reconstruction technique. FINDINGS: LOWER THORAX: No visible consolidation, pleural effusion, or pneumothorax. Coronary artery calcifications. LIVER: Unremarkable. GALLBLADDER AND BILE DUCTS: Cholecystectomy. PANCREAS: Atrophy. SPLEEN: 6 mm probable splenule. Otherwise unremarkable. ADRENALS: Unremarkable. KIDNEYS AND URETERS: The kidneys enhance symmetrically. No hydronephrosis or obstructing calculus identified. Too small to characterize bilateral renal hypodensities; statistically likely cysts. 9 mm hyperdense right renal lesion (series 3, image 49), indeterminate. Bilateral renal cortical scarring. Right renal parapelvic cyst. VASCULATURE: Infrarenal abdominal aortic aneurysm measures approximately 3.9 x 3.5 x 5.5 cm (AP by transverse by cc). Extensive atherosclerotic plaquing calcifications evident. BOWEL: Stomach is nondistended. Lack of oral contrast limits evaluation for bowel pathology. Bowel loops appear within normal limits of caliber without evidence of obstruction. APPENDIX: The appendix appears within normal limits of caliber. No secondary signs of acute appendicitis. PERITONEUM: No significant free fluid. No definite free air. LYMPH NODES: No bulky adenopathy identified. BLADDER: Decompressed urinary bladder limits evaluation. REPRODUCTIVE: Hysterectomy. Right adnexal low-density lesion measuring approximately 2.8 cm, slightly increased in size from 2.4 cm on prior study; likely ovarian cyst. BONES: No acute osseous abnormality is detected. OTHER FINDINGS: None. IMPRESSION: Infrarenal abdominal aortic aneurysm measures approximately 3.9 x 3.5 x 5.5 cm. Atherosclerotic plaque and calcifications. Diverticulosis without CT evidence of acute diverticulitis. Hyperdense right renal lesion, indeterminate; considerations include however proteinaceous or hemorrhagic cyst. Multiple bilateral probable renal cysts. Right parapelvic cyst. Suspected right ovarian cyst, appears slightly increased in size as compared to prior study measuring approximately 2.8 cm on today's examination. Recommend pelvic ultrasound for further evaluation. Additional findings as above. Preliminary impression was provided by DELLA Tejada.
[2017-12-13] MEDS: (Novolog Mix 70/30) Insulin Aspart/Insulin Aspar 100 units/ml SC SCH (12:22)
--- NOTE | 2017-12-13 12:22 | US ---
Date of service: 12/12/2017 HISTORY: renal masses COMPARISON: 11/06/2016 renal ultrasound. 12/12/2017 CT abdomen and pelvis TECHNIQUE: Sonographic evaluation of the abdomen. FINDINGS: LIVER: Measures 15.4 cm. Hepatopedal blood flow. Fatty infiltration manifest ultrasonographically as increased echogenicity of the liver parenchyma. No mass. No intrahepatic bile duct dilatation. GALLBLADDER: Status post cholecystectomy. No abnormality is seen in the gallbladder fossa. COMMON BILE DUCT: Measures 7.2 mm. No stones. No dilatation. PANCREAS: Unremarkable as visualized. No mass. No ductal dilatation. RIGHT KIDNEY: Measures 5.2 x 5.7 x 11.8cm. Normal echogenicity. Or hydronephrosis. Upper pole calculus 4 mm nonobstructing. Incidental finding(s): Multiple (3) simple renal cysts. LEFT KIDNEY: Measures 5.1 x 5.1 x 9.9cm. Normal echogenicity. Mass, or hydronephrosis. Upper pole calculus 6 mm, nonobstructing. Incidental finding(s): 2 simple cysts left kidney. SPLEEN: Normal in size and contour. No mass. AORTA: Aneurysmal dilatation distal aorta 3.2 x 3.6 x 4.6 cm. IVC: Unremarkable. OTHER FINDINGS: Multiple bilateral simple renal cysts. None exceed 13 mm in size. Bilateral nonobstructing renal calculi. Distal abdominal aortic aneurysm. Concordant findings (preliminary report) provided by [facility]. IMPRESSION: Unremarkable abdominal sonogram.
--- NOTE | 2017-12-14 09:33 | DS ---
REASON FOR ADMISSION: This is a 77-year-old female with a history of multiple medical problems, who was admitted for chest pain. COURSE OF HOSPITALIZATION: The patient was admitted to telemetry floor, and myocardial infarction was ruled out by negative cardiac enzymes. The patient had a CAT scan of the chest, which did not show any active disease. The patient had both Cardiology and Pulmonary consult. Due to abnormality in the renal imaging of the CAT scan of the chest, a dedicated CAT scan of the abdomen and renal ultrasound were obtained that showed infrarenal abdominal aortic aneurysm of 3.9 x 3.5 x 5.5 cm, diverticulosis without diverticulitis, hyperdense right renal lesion, indeterminate. Consideration include proteinaceous or hemorrhagic cyst, multiple bilateral probable renal cysts, right parapelvic cyst, ovarian cyst. Abdominal ultrasound was done and it showed an obstructing calculus and left kidney showed two simple cysts and right kidney showed multiple simple renal cysts. ASSESSMENT: Chest pain, myocardial infarction ruled out, chronic obstructive pulmonary disease, hypertension, type 2 diabetes mellitus, aortic aneurysm, osteoarthritis. Ry Suárez MD
== END 2017-12-13 14:06 | disposition home or self-care (01) ==
LOC: C.ER 18:52 → C.9E 20:38 → C.6T 12-11 06:16
PROVIDERS: ADMIT Internal Medicine; ATTEND Internal Medicine
DX: R07.9 Chest pain, unspecified (principal); I25.10 Atherosclerotic heart disease of native coronary artery without angina pectoris; M06.9 Rheumatoid arthritis, unspecified; M19.90 Unspecified osteoarthritis, unspecified site; Z95.5 Presence of coronary angioplasty implant and graft; E78.00 Pure hypercholesterolemia, unspecified; I12.9 Hypertensive chronic kidney disease with stage 1 through stage 4 chronic kidney disease, or unspecified chronic kidney disease; E11.22 Type 2 diabetes mellitus with diabetic chronic kidney disease
CPT/HCPCS: 36415; 71045; 71250; 74177; 76700; 80048; 80053; 82948; 84484; 85025; 85610; 85730; 93005; 93306; 94640; 99285; G0378; J7030; Q9967

== ENCOUNTER 2018-03-21 13:46 | Outpatient (CLI) | payer MEDICARE, MEDICAID | END 2018-03-21 13:47 | disposition home or self-care (01) | LOC: C.LAB 13:46 | DX: K86.89 Other specified diseases of pancreas (principal) ==

== ENCOUNTER 2018-03-22 08:27 | Outpatient (CLI) | payer MEDICARE, MEDICAID | END 2018-03-22 08:28 | disposition home or self-care (01) | LOC: C.LAB 08:27 | DX: K86.89 Other specified diseases of pancreas (principal) ==

== ENCOUNTER 2018-06-25 11:50 | Inpatient (IN) | payer MEDICARE, MEDICAID ==
[2018-06-25 11:59] VITALS: BMI 27.8
--- NOTE | 2018-06-25 12:50 | C.PDOC ---
History Of Present Illness 77 year old female presents to ED with complaint of neck pain, chest pain, and cough for the past 3 days. Patient lives by herself. She denies fever, diarrhea, vomiting , and abdominal pain. Time Seen by Provider: 06/25/18 12:31 Chief Complaint (Nursing): Chest Pain History Per: Patient History/Exam Limitations: no limitations Onset/Duration Of Symptoms: Days (3) Current Symptoms Are (Timing): Still Present Quality: "Pain" Associated Symptoms: denies: Nausea Past Medical History Reviewed: Historical Data, Nursing Documentation, Vital Signs Vital Signs: Last Vital Signs Temp 98 F 06/25/18 12:03 Pulse 93 H 06/25/18 12:03 Resp 20 06/25/18 12:03 BP 122/77 06/25/18 12:03 Pulse Ox 97 06/25/18 12:03 - Medical History PMH: Arthritis, Asthma, Back Problems, Bronchitis, CAD, Cardiac Aneurysm, Colonic Polyps, COPD, Diabetes, Diverticulitis, Emphysema, Fractures (2 TOES ON LEFT FOOT FX. WITH FALL -NO SURGERY), Gastritis, HTN, Hypercholesterolemia, Osteoporosis, Pneumonia, Chronic Kidney Disease Surgical History: Appendectomy, CABG, Cholecystectomy, Coronary Stent, Endoscopy Family History: States: Unknown Family Hx - Social History Hx Tobacco Use: No Hx Alcohol Use: No Hx Substance Use: No - Immunization History Hx Tetanus Toxoid Vaccination: No Hx Influenza Vaccination: No Hx Pneumococcal Vaccination: Yes Review Of Systems Constitutional: Negative for: Fever, Chills Cardiovascular: Positive for: Chest Pain Respiratory: Positive for: Cough Gastrointestinal: Negative for: Nausea, Vomiting, Abdominal Pain, Diarrhea Musculoskeletal: Positive for: Neck Pain Physical Exam - Physical Exam Appears: Non-toxic, No Acute Distress, Other (mild distress) Skin: Normal Color, Warm, Dry, No Rash Head: Atraumatic, Normacephalic Eye(s): bilateral: Normal Inspection Oral Mucosa: Moist Throat: No Erythema, No Exudate Neck: Normal ROM, Supple Chest: Symmetrical, No Deformity, No Tenderness Cardiovascular: Rhythm Regular, No Friction Rub, No Murmur Respiratory: No Rales, Rhonchi (course rhonchi bilaterally, right worse than the left), No Wheezing, Other (mild respiratory distress) Gastrointestinal/Abdominal: Soft, No Tenderness Back: Normal Inspection, No CVA Tenderness Extremity: No Calf Tenderness, Capillary Refill (<2 seconds), No Swelling Neurological/Psych: Oriented x3, Normal Speech, Normal Cognition, Normal Motor Gait: Steady ED Course And Treatment - Laboratory Results Result Diagrams: 06/25/18 13:35 06/25/18 13:35 ECG: Interpreted By Me ECG Rhythm: Sinus Rhythm ECG Interpretation: Normal Interpretation Of ECbpm, normal axis, normal ST-T wave. O2 Sat by Pulse Oximetry: 97 (in RA) Pulse Ox Interpretation: Normal - Other Rad CXR X-Ray: Interpreted by Me, Viewed By Me Interpretation: IMPRESSION: Redemonstrated are emphysematous changes with upper lobe predominance. Mild bibasilar atelectasis opacities could represent increased vascularity due to redistribution of blood flow secondary emphysema as well as some mild atelectasis. Medical Decision Making Medical Decision Making: Plan: EKG and CXR ordered for patient Labs ordered with CMP, troponin, and CBC Patient given IV fluids and toradol Solu-medrol and Duoneb ordered. Blood cultures ordered for ssuspected pneumonia. The case was discussed with Dr. Hall (who is covering for Dr. Suárez) who agrees to admit the patient to his service. Disposition - Disposition Disposition: HOSPITALIZED Disposition Time: 14:36 Condition: STABLE Forms: [facility] (Yoruba) - POA Present On Arrival: None - Clinical Impression Clinical Impression: Dyspnea, Pneumonia, COPD (chronic obstructive pulmonary disease) - PA / ORGANIC PREPARATION TECHNICIAN / Resident Statement MD/DO has reviewed & agrees with the documentation as recorded. (Shania Lala) - Scribe Statement The provider has reviewed the documentation as recorded by the Scribe (Shania Lala) All medical record entries made by the Scribe were at my direction and personally dictated by me. I have reviewed the chart and agree that the record accurately reflects my personal performance of the history, physical exam, medical decision making, and the department course for this patient. I have also personally directed, reviewed, and agree with the discharge instructions and disposition.
[2018-06-25] MEDS ORDERED: Sodium Chloride 0.9% 500 ML IV ONE (12:51)
[2018-06-25] MEDS ORDERED: Sodium Chloride 0.9% 1,000 ML ONE (13:16)
[2018-06-25 13:53] LABS: BASO % 0.5 % (0.0-2.0); EOS # 0.5 K/uL (0.0-0.7); EOS % 6.1 % (0.0-4.0); HEMOGLOBIN 15.3 g/dL (11.0-16.0); LYMPH # 1.3 K/uL (1.0-4.3); LYMPH % 15.4 % (20.0-40.0); MEAN CELL VOLUME 94.6 fL (81.0-99.0); MEAN CORPUSCULAR HEMOGLOBIN 31.7 pg (27.0-31.0); MEAN CORPUSCULAR HGB CONC 33.5 g/dL (33.0-37.0); MEAN PLATELET VOLUME 9.7 fL (7.2-11.7); MONO # 0.8 K/uL (0.0-0.8); MONO % 9.9 % (0.0-10.0); NEUT # 5.6 K/uL (1.8-7.0); NEUT % 68.1 % (50.0-75.0); NRBC % 0.1 % (0.0-2.0); RBC 4.82 Mil/uL (3.80-5.20); WHITE BLOOD COUNT 8.2 K/uL (4.8-10.8)
[2018-06-25 13:54] LABS: ALB/GLOB RATIO 1.1 (1.0-2.1); ALBUMIN 4.3 g/dL (3.5-5.0); AST/SGOT 27 U/L (14-36); BLOOD UREA NITROGEN 24 mg/dL (7-17); CALCIUM 9.6 mg/dl (8.6-10.4); GFR NON-AFRICAN AMERICAN 48
[2018-06-25 13:57] LABS: ALT/SGPT < 6 U/L (9-52)
[2018-06-25 14:04] LABS: B-TYPE NATRIURETIC PEPTIDE 214 pg/mL (0-900)
--- NOTE | 2018-06-25 14:17 | RAD ---
Date of service: 06/25/2018 HISTORY: Chest pain COMPARISON: Comparison made with prior chest dated 12/10/2017. TECHNIQUE: 1 view obtained. FINDINGS: LUNGS: Redemonstrated are emphysematous changes with upper lobe predominance. Mild bibasilar atelectasis opacities could represent increased vascularity due to redistribution of blood flow secondary emphysema as well as some mild atelectasis. PLEURA: No significant pleural effusion identified, no pneumothorax apparent. CARDIOVASCULAR: Mild aortic atherosclerotic calcification present. Heart size borderline/mildly enlarged. No pulmonary vascular congestion. OSSEOUS STRUCTURES: No significant abnormalities. VISUALIZED UPPER ABDOMEN: Normal. OTHER FINDINGS: None. IMPRESSION: Redemonstrated are emphysematous changes with upper lobe predominance. Mild bibasilar atelectasis opacities could represent increased vascularity due to redistribution of blood flow secondary emphysema as well as some mild atelectasis.
[2018-06-25] MEDS ORDERED: Albuterol-Ipratrop 3 mg / 0.5 (3 ml) UD INH STA (14:28)
[2018-06-25] MEDS ORDERED: MethylPREDNISolone 40 mg Vial IVP STA (14:33)
[2018-06-25] MEDS ORDERED: Home Med 1 UNIT (Umeclidinium Bromide [Incruse Ellipta] 62.5 MCG) IH SCH ×2 (15:30→15:59)
[2018-06-25 15:58] LABS: INR 1.9; PROTHROMBIN TIME 20.8 SECONDS (9.7-12.2)
--- NOTE | 2018-06-25 15:59 | CP.PCM.HP ---
<Atif Britton - Last Filed: 06/25/18 17:14> History of Present Illness - History of Present Illness History of Present Illness: H&P for Hospitalist Dr. Hall. 77F w/ PMHx of COPD, HTN, bronchititis, abdominal blood clots (on warfarin 3 mg Q2D, 4mg Q2D), CAD s/p CABG, IDDM, arthritis, osteoporosis presents to ED for 3 day worsening body aches, cough. Patient reports since Sunday she has a productive, white sputum cough, no hemoptysis. Patient reports increased SOB with exertion & chest pain upon coughing. Denies fevers, chills, diarrhea, constipation, headaches, vision changes, weight changes. Denies recent travel history, denies sick contacts. Patient reports back myalgias since cough started with pain radiating to hip. Patient reports living by herself. PMD: Dr. Suárez PMhx: COPD, HTN, bronchititis, abdominal blood clots (on warfarin 3 mg Q2D, 4mg Q2D), CAD s/p CABG, IDDM, arthritis, osteoporosis Meds: See EMR Allergies: See EMR SHx: smokes 5 ciggerates/ day for past 60 years FHx: Multiple family members with heart conditions, diabetes Present on Admission - Present on Admission Any Indicators Present on Admission: No History of DVT/PE: Yes History of Uncontrolled Diabetes: No Urinary Catheter: No Decubitus Ulcer Present: No Review of Systems - Constitutional Constitutional: absent: Chills, Fever, Headache, Night Sweats - EENT Eyes: absent: Blurred Vision, Change in Vision Ears: absent: Ear Discharge Nose/Mouth/Throat: absent: Nasal Congestion - Breasts Breasts: absent: Mass - Cardiovascular Cardiovascular: Dyspnea. absent: Chest Pain, Chest Pain at Rest - Respiratory Respiratory: Cough, Dyspnea, Excessive Mucous Production - Gastrointestinal Gastrointestinal: absent: Abdominal Pain, Bloating, Constipation, Diarrhea - Genitourinary Genitourinary: absent: Change in Urinary Stream, Difficulty Urinating - Musculoskeletal Musculoskeletal: absent: Joint Swelling, Muscle Weakness, Myalgias - Integumentary Integumentary: absent: Dry Skin - Neurological Neurological: absent: Abnormal Hearing, Dizziness, Headaches - Psychiatric Psychiatric: absent: Abnormal Sleep Pattern, Anhedonia Past Patient History - Past Medical History & Family History Past Medical History?: Yes - Past Social History Smoking Status: Light Smoker < 10 Cigarettes Daily - CARDIAC Hx Hypercholesterolemia: Yes Hx Hypertension: Yes - PULMONARY Hx Asthma: Yes Hx Bronchitis: Yes Hx Chronic Obstructive Pulmonary Disease (COPD): Yes Hx Emphysema: Yes Hx Pneumonia: Yes - NEUROLOGICAL Hx Neurological Disorder: No - HEENT Hx HEENT Problems: Yes Hx Cataracts: Yes (BILAT. IOL DONE) - RENAL Hx Chronic Kidney Disease: Yes - ENDOCRINE/METABOLIC Hx Endocrine Disorders: Yes Hx Diabetes Mellitus Type 2: Yes - HEMATOLOGICAL/ONCOLOGICAL Hx Blood Disorders: No - INTEGUMENTARY Hx Dermatological Problems: No - MUSCULOSKELETAL/RHEUMATOLOGICAL Hx Arthritis: Yes Hx Fractures: Yes (2 TOES ON LEFT FOOT FX. WITH FALL -NO SURGERY) Hx Osteoporosis: Yes - GASTROINTESTINAL Hx Diverticulitis: Yes Hx Gastritis: Yes - GENITOURINARY/GYNECOLOGICAL Hx Genitourinary Disorders: No - PSYCHIATRIC Hx Substance Use: No - SURGICAL HISTORY Hx Appendectomy: Yes Hx Cholecystectomy: Yes Hx Coronary Artery Bypass Graft: Yes Hx Coronary Stent: Yes - ANESTHESIA Hx Anesthesia: Yes Hx Anesthesia Reactions: No Hx Malignant Hyperthermia: No Meds Allergies/Adverse Reactions: Allergies Allergy/AdvReac Type Severity Reaction Status Date / Time acetaminophen [From Percocet] Allergy Intermediate RASH Verified 11/22/17 10:51 moxifloxacin HCl Allergy Intermediate RASH Verified 12/10/17 19:10 [From Avelox] oxycodone HCl [From Percocet] Allergy Intermediate RASH Verified 12/10/17 19:10 prednisone Allergy Intermediate PAIN Verified 11/22/17 10:51 Physical Exam - Constitutional Appears: Non-toxic, No Acute Distress - Head Exam Head Exam: ATRAUMATIC, NORMAL INSPECTION, NORMOCEPHALIC - Eye Exam Eye Exam: EOMI, Normal appearance - ENT Exam ENT Exam: Mucous Membranes Moist - Respiratory Exam Respiratory Exam: Decreased Breath Sounds, NORMAL BREATHING PATTERN. absent: Rales, Rhonchi, Wheezes - Cardiovascular Exam Cardiovascular Exam: +S1, +S2. absent: Systolic Murmur - GI/Abdominal Exam GI & Abdominal Exam: Normal Bowel Sounds, Soft. absent: Distended, Firm, Guarding, Rigid - Extremities Exam Extremities exam: Positive for: calf tenderness. Negative for: pedal edema, tenderness Additional comments: R calf tenderness - Back Exam Back exam: absent: CVA tenderness (L), CVA tenderness (R) - Neurological Exam Neurological exam: Alert, Oriented x3 - Psychiatric Exam Psychiatric exam: Normal Affect, Normal Mood - Skin Skin Exam: Dry, Intact, Normal Color, Warm Results - Vital Signs Recent Vital Signs: Last Vital Signs Temp 98 F 06/25/18 12:03 Pulse 93 H 06/25/18 12:03 Resp 20 06/25/18 12:03 BP 122/77 06/25/18 12:03 Pulse Ox 97 06/25/18 14:41 - Labs Result Diagrams: 06/25/18 13:35 06/25/18 13:35 Labs: Laboratory Results - last 24 hr 06/25/18 06/25/18 06/25/18 13:35 13:35 15:44 WBC 8.2 RBC 4.82 Hgb 15.3 Hct 45.6 MCV 94.6 MCH 31.7 H MCHC 33.5 RDW 14.0 Plt Count 222 MPV 9.7 Neut % (Auto) 68.1 Lymph % (Auto) 15.4 L Kerr % (Auto) 9.9 Eos % (Auto) 6.1 H Baso % (Auto) 0.5 Neut # (Auto) 5.6 Lymph # (Auto) 1.3 Kerr # (Auto) 0.8 Eos # (Auto) 0.5 Baso # (Auto) 0.0 PT 20.8 H INR 1.9 APTT 46 H Sodium 134 Potassium 4.1 Chloride 100 Carbon Dioxide 28 Anion Gap 11 BUN 24 H Creatinine 1.1 Est GFR ( Amer) 58 Est GFR (Non-Af Amer) 48 Random Glucose 207 H D Calcium 9.6 Total Bilirubin 0.6 AST 27 ALT < 6 L D Alkaline Phosphatase 60 Troponin I < 0.0120 NT-Pro-B Natriuret Pep 214 Total Protein 8.2 Albumin 4.3 Globulin 4.0 H Albumin/Globulin Ratio 1.1 Assessment & Plan - Assessment and Plan (Free Text) Assessment: 77F w/ PMHx of COPD, HTN, bronchititis, abdominal blood clots (on warfarin 3 mg Q2D, 4mg Q2D), CAD s/p CABG, IDDM, arthritis, osteoporotos admitted for COPD exacerbation Plan: COPD exacerbation - XRAY: emphysematous changes with upper lobe predominance, mild bibasalar atelctasis opacities could represent increased vascularity due to redistribution fo blood secondary to emphysema - O2 Sat 99 on NC 2 LPM - solumedrol 40mg IVP Q8H, rocephin 1gm Q12H, singular 10 mg daily, duonebs Q6H gabino, - F/u pulm Dr. Leija recs - F/u flu, strep pneumo, leginella, mycoplasma, blood cultures, sputum cultures Hx of CAD Hx of CABG Hx of blood clots - INR 1.9 - currently on warfarin 3mg Q2D and 4mg Q2D - due for warfarin 3mg tonight - F/u cardio recs - F/u LE dopplers History of insulin dependent diabetes - c/w with home insulin dose levemir 20 mg SC HS & actos 15 mg Po daily - ISS medium ACHS - hypoglycemia protocol - accuchecks achs History of hypertension - c/w home medications HCTZ 12.5 mg PO daily, cozaar 50 mg PO daily ? Pancreatic insufficiency - possibly due to diabetes - continue pancreatic enzymes Smoking cessation - c/w home medication bupropion SR 100 mg PO BID - start nicoderm 14 g daily Ppx - DVT: on warfarin - GI: not indicated - heart healthy diet <Yfn Hall H - Last Filed: 06/25/18 17:45> Results - Vital Signs Recent Vital Signs: Last Vital Signs Temp 98.5 F 06/25/18 16:37 Pulse 89 06/25/18 16:37 Resp 20 06/25/18 16:37 BP 123/56 L 06/25/18 16:37 Pulse Ox 96 06/25/18 16:37 - Labs Result Diagrams: 06/25/18 13:35 06/25/18 13:35 Labs: Laboratory Results - last 24 hr 06/25/18 06/25/18 06/25/18 13:35 13:35 15:44 WBC 8.2 RBC 4.82 Hgb 15.3 Hct 45.6 MCV 94.6 MCH 31.7 H MCHC 33.5 RDW 14.0 Plt Count 222 MPV 9.7 Neut % (Auto) 68.1 Lymph % (Auto) 15.4 L Kerr % (Auto) 9.9 Eos % (Auto) 6.1 H Baso % (Auto) 0.5 Neut # (Auto) 5.6 Lymph # (Auto) 1.3 Kerr # (Auto) 0.8 Eos # (Auto) 0.5 Baso # (Auto) 0.0 PT 20.8 H INR 1.9 APTT 46 H Sodium 134 Potassium 4.1 Chloride 100 Carbon Dioxide 28 Anion Gap 11 BUN 24 H Creatinine 1.1 Est GFR ( Amer) 58 Est GFR (Non-Af Amer) 48 Random Glucose 207 H D Calcium 9.6 Total Bilirubin 0.6 AST 27 ALT < 6 L D Alkaline Phosphatase 60 Troponin I < 0.0120 NT-Pro-B Natriuret Pep 214 Total Protein 8.2 Albumin 4.3 Globulin 4.0 H Albumin/Globulin Ratio 1.1 Influenza Typ A,B (EIA) 06/25/18 15:44 WBC RBC Hgb Hct MCV MCH MCHC RDW Plt Count MPV Neut % (Auto) Lymph % (Auto) Kerr % (Auto) Eos % (Auto) Baso % (Auto) Neut # (Auto) Lymph # (Auto) Kerr # (Auto) Eos # (Auto) Baso # (Auto) PT INR APTT Sodium Potassium Chloride Carbon Dioxide Anion Gap BUN Creatinine Est GFR ( Amer) Est GFR (Non-Af Amer) Random Glucose Calcium Total Bilirubin AST ALT Alkaline Phosphatase Troponin I NT-Pro-B Natriuret Pep Total Protein Albumin Globulin Albumin/Globulin Ratio Influenza Typ A,B (EIA) Negative for flu a/b Attending/Attestation - Attestation I have personally seen and examined this patient.: Yes I have fully participated in the care of the patient.: Yes I have reviewed all pertinent clinical information: Yes Notes (Text): 06/25/18 17:40 Medical attending: Patient was seen and examined by me. Agree with the above note by the resident The patient explains she wears home O2 which we will continue while here. She will be placed on solumedrol as well as her home breathing medications as well. She reports thick, clear sputum production which we will culture and also check a blood culture, check also the atypical cultures, as well and flu studies Emperic Rocpehin IV BID for the time being. Yfn Hall
[2018-06-25] MEDS ORDERED: Glucagon Recombinant 1 mg Inj IM PRN (16:38)
[2018-06-25] MEDS ORDERED: Dextrose 50% SYRINGE Inj (50 ml) IV PRN (16:38)
--- NOTE | 2018-06-25 17:40 | CP.PCM.CON ---
History of Present Illness - History of Present Illness History of Present Illness: Reason for consultation : shortness of breath 77-year-old female with history of COPD, coronary artery disease status post CABG, diabetes, hypertension presented to emergency room with 3-day history of worsening shortness of breath and cough. Denies fever chills, denies chest pain. Cough is productive of clear phlegm PMhx: COPD, HTN, bronchititis, abdominal blood clots (on warfarin 3 mg Q2D, 4mg Q2D), CAD s/p CABG, IDDM, arthritis, osteoporosis Meds: See EMR Allergies: See EMR SHx: smokes 5 ciggerates/ day for past 60 years FHx: Multiple family members with heart conditions, diabetes Review of Systems - Review of Systems All systems: reviewed and no additional remarkable complaints except (Shortness of breath and cough) Past Patient History - Past Medical History & Family History Past Medical History?: Yes - Past Social History Smoking Status: Light Smoker < 10 Cigarettes Daily - CARDIAC Hx Hypercholesterolemia: Yes Hx Hypertension: Yes - PULMONARY Hx Asthma: Yes Hx Bronchitis: Yes Hx Chronic Obstructive Pulmonary Disease (COPD): Yes Hx Emphysema: Yes Hx Pneumonia: Yes - NEUROLOGICAL Hx Neurological Disorder: No - HEENT Hx HEENT Problems: Yes Hx Cataracts: Yes (BILAT. IOL DONE) - RENAL Hx Chronic Kidney Disease: Yes - ENDOCRINE/METABOLIC Hx Endocrine Disorders: Yes Hx Diabetes Mellitus Type 2: Yes - HEMATOLOGICAL/ONCOLOGICAL Hx Blood Disorders: No - INTEGUMENTARY Hx Dermatological Problems: No - MUSCULOSKELETAL/RHEUMATOLOGICAL Hx Arthritis: Yes Hx Fractures: Yes (2 TOES ON LEFT FOOT FX. WITH FALL -NO SURGERY) Hx Osteoporosis: Yes - GASTROINTESTINAL Hx Diverticulitis: Yes Hx Gastritis: Yes - GENITOURINARY/GYNECOLOGICAL Hx Genitourinary Disorders: No - PSYCHIATRIC Hx Substance Use: No - SURGICAL HISTORY Hx Appendectomy: Yes Hx Cholecystectomy: Yes Hx Coronary Artery Bypass Graft: Yes Hx Coronary Stent: Yes - ANESTHESIA Hx Anesthesia: Yes Hx Anesthesia Reactions: No Hx Malignant Hyperthermia: No Meds Allergies/Adverse Reactions: Allergies Allergy/AdvReac Type Severity Reaction Status Date / Time acetaminophen [From Percocet] Allergy Intermediate RASH Verified 11/22/17 10:51 moxifloxacin HCl Allergy Intermediate RASH Verified 12/10/17 19:10 [From Avelox] oxycodone HCl [From Percocet] Allergy Intermediate RASH Verified 12/10/17 19:10 prednisone Allergy Intermediate PAIN Verified 11/22/17 10:51 - Medications Medications: Current Medications Albuterol/Ipratropium (Duoneb 3 Mg/0.5 Mg (3 Ml) Ud) 3 ml INH RQ6 [facility] Aspirin (Ecotrin) 81 mg PO DAILY [facility] Bupropion HCl (Wellbutrin) 100 mg PO BID [facility] Dextrose (Dextrose 50% Inj) 0 ml IV STAT PRN; Protocol PRN Reason: Hypoglycemia Protocol Dextrose (Glutose 15) 0 gm PO ONCE PRN; Protocol PRN Reason: Hypoglycemia Protocol Famotidine (Pepcid) 20 mg PO DAILY [facility] Glucagon (Glucagen Diagnostic Kit) 0 mg IM STAT PRN; Protocol PRN Reason: Hypoglycemia Protocol Home Med (Lipase/Protease/Amylase [Creon Dr 12,000 Units Capsule]) 1 each PO TID [facility] Hydrochlorothiazide (Microzide) 12.5 mg PO DAILY [facility] Ceftriaxone Sodium 1 gm/ (Sodium Chloride) 100 mls @ 100 mls/hr IVPB Q12H KEN; Protocol Last Admin: 06/25/18 16:36 Dose: 100 mls/hr Dextrose (Dextrose 5% In Water 1000 Ml) 1,000 mls @ 0 mls/hr IV .Q0M PRN; Protocol PRN Reason: Hypoglycemia Protocol Insulin Aspart (Novolog) 0 unit SC ACHS KEN; Protocol Insulin Detemir (Levemir) 20 unit SC HS [facility] Losartan Potassium (Cozaar) 50 mg PO DAILY [facility] Methylprednisolone (Solu-Medrol) 40 mg IVP Q8H [facility] Montelukast Sodium (Singulair) 10 mg PO DAILY [facility] Nicotine (Nicoderm Cq) 1 patch TD DAILY [facility] Pioglitazone HCl (Actos) 15 mg PO DAILY [facility] Saccharomyces Boulardii (Florastor) 250 mg PO BID [facility] Warfarin Sodium (Coumadin) 3 mg PO 1800 [facility] Stop: 06/25/18 18:01 Physical Exam - Head Exam Head Exam: ATRAUMATIC, NORMOCEPHALIC - Eye Exam Eye Exam: Normal appearance - ENT Exam ENT Exam: Mucous Membranes Moist - Neck Exam Neck exam: Positive for: Normal Inspection - Respiratory Exam Respiratory Exam: Decreased Breath Sounds - Cardiovascular Exam Cardiovascular Exam: REGULAR RHYTHM - GI/Abdominal Exam GI & Abdominal Exam: Normal Bowel Sounds, Soft - Extremities Exam Extremities exam: Positive for: normal inspection - Neurological Exam Neurological exam: Alert, Oriented x3 Results - Vital Signs Recent Vital Signs: Last Vital Signs Temp 98.5 F 06/25/18 16:37 Pulse 89 06/25/18 16:37 Resp 20 06/25/18 16:37 BP 123/56 L 06/25/18 16:37 Pulse Ox 96 06/25/18 16:37 - Labs Result Diagrams: 06/25/18 13:35 06/25/18 13:35 Labs: Laboratory Results - last 24 hr 06/25/18 06/25/18 06/25/18 13:35 13:35 15:44 WBC 8.2 RBC 4.82 Hgb 15.3 Hct 45.6 MCV 94.6 MCH 31.7 H MCHC 33.5 RDW 14.0 Plt Count 222 MPV 9.7 Neut % (Auto) 68.1 Lymph % (Auto) 15.4 L [place] % (Auto) 9.9 Eos % (Auto) 6.1 H Baso % (Auto) 0.5 Neut # (Auto) 5.6 Lymph # (Auto) 1.3 [place] # (Auto) 0.8 Eos # (Auto) 0.5 Baso # (Auto) 0.0 PT 20.8 H INR 1.9 APTT 46 H Sodium 134 Potassium 4.1 Chloride 100 Carbon Dioxide 28 Anion Gap 11 BUN 24 H Creatinine 1.1 Est GFR ( Amer) 58 Est GFR (Non-Af Amer) 48 Random Glucose 207 H D Calcium 9.6 Total Bilirubin 0.6 AST 27 ALT < 6 L D Alkaline Phosphatase 60 Troponin I < 0.0120 NT-Pro-B Natriuret Pep 214 Total Protein 8.2 Albumin 4.3 Globulin 4.0 H Albumin/Globulin Ratio 1.1 Influenza Typ A,B (EIA) 06/25/18 15:44 WBC RBC Hgb Hct MCV MCH MCHC RDW Plt Count MPV Neut % (Auto) Lymph % (Auto) [place] % (Auto) Eos % (Auto) Baso % (Auto) Neut # (Auto) Lymph # (Auto) [place] # (Auto) Eos # (Auto) Baso # (Auto) PT INR APTT Sodium Potassium Chloride Carbon Dioxide Anion Gap BUN Creatinine Est GFR ( Amer) Est GFR (Non-Af Amer) Random Glucose Calcium Total Bilirubin AST ALT Alkaline Phosphatase Troponin I NT-Pro-B Natriuret Pep Total Protein Albumin Globulin Albumin/Globulin Ratio Influenza Typ A,B (EIA) Negative for flu a/b Assessment & Plan (1) COPD exacerbation Assessment and Plan: Continue nebulizer treatment, IV steroids Continue antibiotics CPAP at night Status: Acute
[2018-06-25] MEDS: Saccharomyces Boulardi 250 mg Cap PO SCH (19:39)
[2018-06-25] MEDS: CREON PO SCH (19:40)
[2018-06-25] MEDS: Albuterol-Ipratrop 3 mg / 0.5 (3 ml) UD INH SCH (19:57)
[2018-06-25] MEDS ORDERED: MethylPREDNISolone 40 mg Vial IVP SCH (20:00)
[2018-06-25] MEDS: MethylPREDNISolone 40 mg Vial IVP SCH (20:10)
[2018-06-25] MEDS: (Novolog) Insulin Aspart, Recombinant 100 u/ml 10 ml vial SC SCH (21:41)
[2018-06-25] MEDS: Insulin Detemir 100 units/ml Vial (Levemir) SC SCH (22:10)
[2018-06-26] MEDS: Albuterol-Ipratrop 3 mg / 0.5 (3 ml) UD INH SCH ×2 (01:22→07:57)
[2018-06-26] MEDS: MethylPREDNISolone 40 mg Vial IVP SCH ×3 (04:02→21:15)
[2018-06-26 06:52] LABS: BASO % 0.1 % (0.0-2.0); HEMOGLOBIN 13.6 g/dL (11.0-16.0); LYMPH # 0.5 K/uL (1.0-4.3); LYMPH % 7.2 % (20.0-40.0); MEAN CELL VOLUME 95.3 fL (81.0-99.0); MEAN CORPUSCULAR HEMOGLOBIN 31.3 pg (27.0-31.0); MEAN CORPUSCULAR HGB CONC 32.9 g/dL (33.0-37.0); MEAN PLATELET VOLUME 9.5 fL (7.2-11.7); MONO # 0.2 K/uL (0.0-0.8); MONO % 2.5 % (0.0-10.0); NEUT # 6.8 K/uL (1.8-7.0); NEUT % 90.2 % (50.0-75.0); PLATELET COUNT 190 K/uL (130-400); RBC 4.35 Mil/uL (3.80-5.20); RED CELL DISTRIBUTION WIDTH 13.8 % (11.5-14.5); WHITE BLOOD COUNT 7.5 K/uL (4.8-10.8)
[2018-06-26 06:56] LABS: INR 1.9; PROTHROMBIN TIME 21.2 SECONDS (9.7-12.2)
[2018-06-26 07:27] LABS: ALB/GLOB RATIO 1.1 (1.0-2.1); ALBUMIN 3.7 g/dL (3.5-5.0); ALT/SGPT < 6 U/L (9-52); AST/SGOT 19 U/L (14-36); BLOOD UREA NITROGEN 36 mg/dL (7-17); GFR NON-AFRICAN AMERICAN 43
[2018-06-26] MEDS: (Novolog) Insulin Aspart, Recombinant 100 u/ml 10 ml vial SC SCH ×4 (08:05→22:01)
[2018-06-26] MEDS: CREON PO SCH ×3 (08:09→18:00)
[2018-06-26 08:49] LABS: BANDS 1 % (0-2); LYMPHOCYTE 4 % (20-40); MONOCYTE 4 % (0-10); NEUTROPHIL 91 % (50-75); PLATELET ESTIMATE NORMAL (NORMAL); TOTAL CELLS COUNTED 100
--- NOTE | 2018-06-26 09:12 | CP.PCM.PN ---
<Atif Britton - Last Filed: 06/26/18 11:43> Subjective - Date & Time of Evaluation Date of Evaluation: 06/26/18 Time of Evaluation: 07:20 - Subjective Subjective: Medicine progress note for hospitalist Dr. Hall Patient seen and examined at bedside. Patient sitting comfortably. Patient reports she has a slight headache along with a persistent cough with minimal sputum production. Patient denies fevers, chills, nausea, vomiting, chest pain, SOB. Objective - Vital Signs/Intake and Output Vital Signs (last 24 hours): Temp Pulse Resp BP Pulse Ox 98.7 F 78 18 100/71 94 L 06/26/18 07:30 06/26/18 08:48 06/26/18 07:30 06/26/18 07:30 06/26/18 08:48 Intake and Output: 06/26/18 06/26/18 06:59 18:59 Intake Total 250 Balance 250 - Medications Medications: Current Medications Albuterol/Ipratropium (Duoneb 3 Mg/0.5 Mg (3 Ml) Ud) 3 ml INH RQ6 [facility] Last Admin: 06/26/18 07:57 Dose: Not Given Aspirin (Ecotrin) 81 mg PO DAILY [facility] Bupropion HCl (Wellbutrin) 100 mg PO BID [facility] Last Admin: 06/25/18 19:40 Dose: 100 mg Dextrose (Dextrose 50% Inj) 0 ml IV STAT PRN; Protocol PRN Reason: Hypoglycemia Protocol Dextrose (Glutose 15) 0 gm PO ONCE PRN; Protocol PRN Reason: Hypoglycemia Protocol Famotidine (Pepcid) 20 mg PO DAILY [facility] Fluticasone/Vilanterol (Breo Ellipta 100-25 Mcg Inh) 1 puff INH RQD [facility] Glucagon (Glucagen Diagnostic Kit) 0 mg IM STAT PRN; Protocol PRN Reason: Hypoglycemia Protocol Home Med (Patient's Own Medication) 1 tab PO TIDCC [facility] Last Admin: 06/26/18 08:09 Dose: 1 tab Hydrochlorothiazide (Microzide) 12.5 mg PO DAILY [facility] Ceftriaxone Sodium 1 gm/ (Sodium Chloride) 100 mls @ 100 mls/hr IVPB Q12H [facility]; Protocol Last Admin: 06/26/18 04:03 Dose: 100 mls/hr Dextrose (Dextrose 5% In Water 1000 Ml) 1,000 mls @ 0 mls/hr IV .Q0M PRN; Protocol PRN Reason: Hypoglycemia Protocol Insulin Aspart (Novolog) 0 unit SC ACHS [facility]; Protocol Last Admin: 06/26/18 08:05 Dose: 3 units Insulin Detemir (Levemir) 20 unit SC HS [facility] Last Admin: 06/25/18 22:10 Dose: 20 units Losartan Potassium (Cozaar) 50 mg PO DAILY [facility] Methylprednisolone (Solu-Medrol) 40 mg IVP Q8H [facility] Last Admin: 06/26/18 04:02 Dose: 40 mg Montelukast Sodium (Singulair) 10 mg PO DAILY [facility] Nicotine (Nicoderm Cq) 1 patch TD DAILY [facility] Last Admin: 06/25/18 19:39 Dose: 1 patch Pioglitazone HCl (Actos) 15 mg PO DAILY [facility] Saccharomyces Boulardii (Florastor) 250 mg PO BID [facility] Last Admin: 06/25/18 19:39 Dose: 250 mg - Labs Labs: 06/26/18 06:30 06/26/18 06:30 PT 21.2 SECONDS (9.7-12.2) H 06/26/18 06:30 INR 1.9 06/26/18 06:30 APTT 43 SECONDS (21-34) H 06/26/18 06:30 - Constitutional Appears: Non-toxic, No Acute Distress - Head Exam Head Exam: NORMAL INSPECTION - Eye Exam Eye Exam: Normal appearance - ENT Exam ENT Exam: Mucous Membranes Moist. absent: Mucous Membranes Dry - Respiratory Exam Respiratory Exam: Clear to Ausculation Bilateral, NORMAL BREATHING PATTERN. absent: Rales, Rhonchi, Wheezes - Cardiovascular Exam Cardiovascular Exam: +S1, +S2. absent: Murmur - GI/Abdominal Exam GI & Abdominal Exam: Soft, Normal Bowel Sounds. absent: Firm, Guarding, Rigid - Extremities Exam Extremities Exam: Calf Tenderness, Full ROM, Normal Inspection. absent: Pedal Edema Additional comments: Reports occasional calf pain b/l on palpation - Back Exam Back Exam: absent: CVA tenderness (L), CVA tenderness (R) - Neurological Exam Neurological Exam: Alert, Awake, Oriented x3 - Psychiatric Exam Psychiatric exam: Normal Affect, Normal Mood - Skin Skin Exam: Dry, Intact, Normal Color Assessment and Plan - Assessment and Plan (Free Text) Assessment: 77F w/ PMHx of COPD, HTN, bronchititis, abdominal blood clots (on warfarin 3 mg Q2D, 4mg Q2D), CAD s/p CABG, IDDM, arthritis, osteoporotos admitted for COPD exacerbation Plan: COPD exacerbation - XRAY: emphysematous changes with upper lobe predominance, mild bibasalar atelctasis opacities could represent increased vascularity due to redistribution fo blood secondary to emphysema - O2 Sat 99 on NC 2 LPM - atypicals, flu, strep pneumo, leginella, mycoplasma - negative - solumedrol 40mg IVP Q8H, rocephin 1gm Q12H, singular 10 mg daily, duonebs Q6H [facility], brovana 15 mcg Q12H, mucinex 600 PO BID, pulmicort 0.5mg BID - F/u pulm Dr. Heladio danielson - cpap at night - F/u blood cultures, sputum cultures - F/u CT chest r/o pneumonia Hx of CAD Hx of CABG Hx of blood clots - INR 1.9 - currently on warfarin 3mg Q2D and 4mg Q2D - due for warfarin 3mg tonight - F/u cardio recs - F/u LE dopplers History of insulin dependent diabetes - c/w with home insulin dose levemir 20 mg SC HS & actos 15 mg Po daily - ISS medium ACHS - hypoglycemia protocol - accuchecks achs History of hypertension - c/w home medications HCTZ 12.5 mg PO daily, cozaar 50 mg PO daily ? Pancreatic insufficiency - possibly due to diabetes - continue pancreatic enzymes Smoking cessation - c/w home medication bupropion SR 100 mg PO BID - start nicoderm 14 g daily Ppx - DVT: on warfarin - GI: not indicated - heart healthy diet - F/u PT recs <Yfn Hall - Last Filed: 06/26/18 15:40> Objective - Vital Signs/Intake and Output Vital Signs (last 24 hours): Temp Pulse Resp BP Pulse Ox 98.7 F 78 18 100/71 94 L 06/26/18 07:30 06/26/18 08:48 06/26/18 07:30 06/26/18 07:30 06/26/18 08:48 Intake and Output: 06/26/18 06/26/18 06:59 18:59 Intake Total 250 Balance 250 - Medications Medications: Current Medications Albuterol/Ipratropium (Duoneb 3 Mg/0.5 Mg (3 Ml) Ud) 3 ml INH RQ6 PRN PRN Reason: Shortness of Breath Arformoterol Tartrate (Brovana) 15 mcg INH RQ12 [facility] Aspirin (Ecotrin) 81 mg PO DAILY [facility] Last Admin: 06/26/18 09:25 Dose: 81 mg Budesonide (Pulmicort Respules) 0.5 mg INH RQ12 [facility] Bupropion HCl (Wellbutrin) 100 mg PO BID [facility] Last Admin: 06/26/18 09:24 Dose: 100 mg Dextrose (Dextrose 50% Inj) 0 ml IV STAT PRN; Protocol PRN Reason: Hypoglycemia Protocol Dextrose (Glutose 15) 0 gm PO ONCE PRN; Protocol PRN Reason: Hypoglycemia Protocol Famotidine (Pepcid) 20 mg PO DAILY [facility] Last Admin: 06/26/18 09:24 Dose: 20 mg Glucagon (Glucagen Diagnostic Kit) 0 mg IM STAT PRN; Protocol PRN Reason: Hypoglycemia Protocol Guaifenesin (Mucinex La) 600 mg PO BID [facility] Last Admin: 06/26/18 12:03 Dose: 600 mg Home Med (Patient's Own Medication) 1 tab PO TIDCC [facility] Last Admin: 06/26/18 12:07 Dose: 1 tab Hydrochlorothiazide (Microzide) 12.5 mg PO DAILY [facility] Last Admin: 06/26/18 09:24 Dose: 12.5 mg Ceftriaxone Sodium 1 gm/ (Sodium Chloride) 100 mls @ 100 mls/hr IVPB Q12H [facility]; Protocol Last Admin: 06/26/18 04:03 Dose: 100 mls/hr Dextrose (Dextrose 5% In Water 1000 Ml) 1,000 mls @ 0 mls/hr IV .Q0M PRN; Protocol PRN Reason: Hypoglycemia Protocol Insulin Aspart (Novolog) 0 unit SC ACHS [facility]; Protocol Last Admin: 06/26/18 12:04 Dose: Not Given Insulin Detemir (Levemir) 20 unit SC HS [facility] Last Admin: 06/25/18 22:10 Dose: 20 units Losartan Potassium (Cozaar) 50 mg PO DAILY [facility] Last Admin: 06/26/18 09:24 Dose: 50 mg Methylprednisolone (Solu-Medrol) 40 mg IVP Q8H [facility] Last Admin: 06/26/18 12:11 Dose: 40 mg Montelukast Sodium (Singulair) 10 mg PO DAILY [facility] Last Admin: 06/26/18 14:33 Dose: 10 mg Nicotine (Nicoderm Cq) 1 patch TD DAILY [facility] Last Admin: 06/26/18 09:24 Dose: 1 patch Pioglitazone HCl (Actos) 15 mg PO DAILY [facility] Last Admin: 06/26/18 09:24 Dose: 15 mg Saccharomyces Boulardii (Florastor) 250 mg PO BID [facility] Last Admin: 06/26/18 09:25 Dose: 250 mg Warfarin Sodium (Coumadin) 4 mg PO 1800 [facility] Stop: 06/26/18 18:01 - Labs Labs: 06/26/18 06:30 06/26/18 06:30 PT 21.2 SECONDS (9.7-12.2) H 06/26/18 06:30 INR 1.9 06/26/18 06:30 APTT 43 SECONDS (21-34) H 06/26/18 06:30 Attending/Attestation - Attestation I have personally seen and examined this patient.: Yes I have fully participated in the care of the patient.: Yes I have reviewed all pertinent clinical information, including history, physical exam and plan: Yes Notes (Text): Medical attending: Patient was seen and examined by me. Agree with the above note by the resident The patient was not in any acute distress when we came and saw her. She explained that she still had + coughing, however not productive sputum like previous. For the time being we are pending cultures and also she remains on the IV abx Because of this ongoing productive cough, we are checking a CT without contrast of the chest. The patient does have a history of smoking and still is an active smoker she explains. Tomorrow the patient's primary physician is returning. thank you Yfn Hall
[2018-06-26] MEDS: Saccharomyces Boulardi 250 mg Cap PO SCH ×2 (09:25→18:07)
[2018-06-26] MEDS ORDERED: Arformoterol 15 mcg/2 ml Inh Sol INH SCH (09:30)
[2018-06-26] MEDS ORDERED: Insulin Detemir 100 units/ml Vial (Levemir) SC SCH (10:00)
[2018-06-26] MEDS: guaiFENesin 600 mg ER Tab PO SCH ×2 (12:03→18:07)
--- NOTE | 2018-06-26 14:01 | VASCLAB ---
Date of service: 06/26/2018 PROCEDURE: Lower Extremity Venous Duplex Exam. HISTORY: r calf tenderness, on coumadin, hx of clots PRIORS: Last LEV 06/03/2003, normal. TECHNIQUE: Bilateral common femoral, femoral, popliteal and posterior tibial, peroneal and great saphenous veins were evaluated. Flow was assessed with color Doppler, compressibility, assessment of phasic flow and augmentation response. Report prepared by YAN Ortiz FINDINGS: RIGHT: 1. Common Femoral Vein: 1.1. Compressibility - Fully compressible: Thrombus - None : Flow - Phasic: Augmentation -Normal: Reflux - None. 2. Femoral Vein: 2.1. Compressibility - Fully compressible: Thrombus - None : Flow - Phasic: Augmentation -Normal: Reflux - None. 3. Popliteal Vein: 3.1. Compressibility - Fully compressible: Thrombus - None : Flow - Phasic: Augmentation -Normal: Reflux - None. 4. Posterior Tibial Vein: 4.1. Compressibility - Fully compressible: Thrombus - None: Flow - Phasic: Augmentation -Normal: Reflux - None. 5. Peroneal Vein: 5.1. Compressibility - Fully compressible: Thrombus - None: Flow - Phasic: Augmentation -Normal: Reflux - None. 6. Great Saphenous Vein: 6.1. Previously harvested for CABG. LEFT: 1. Common Femoral Vein: 1.1. Compressibility - Fully compressible: Thrombus - None: Flow - Phasic: Augmentation -Normal: Reflux - None. 2. Femoral Vein: 2.1. Compressibility - Fully compressible: Thrombus - None: Flow - Phasic: Augmentation -Normal: Reflux - None. 3. Popliteal Vein: 3.1. Compressibility - Fully compressible: Thrombus - None : Flow - Phasic: Augmentation -Normal: Reflux - None. 4. Posterior Tibial Vein: 4.1. Compressibility - Fully compressible: Thrombus - None: Flow - Phasic: Augmentation -Normal: Reflux - None. 5. Peroneal Vein: 5.1. Compressibility - Fully compressible: Thrombus - None: Flow - Phasic: Augmentation -Normal: Reflux - None. 6. Great Saphenous Vein: 6.1. Compressibility - Fully compressible: Thrombus - None: Flow - Phasic: Augmentation - Normal: Reflux - None. OTHER FINDINGS: Pulsatile venous flow noted bilaterally. IMPRESSION: Right: No evidence of deep or superficial vein thrombosis of the right lower extremity. Normal valve function noted of the right side. Left: No evidence of deep or superficial vein thrombosis of the left lower extremity. Normal valve function noted of the left side.
--- NOTE | 2018-06-26 14:29 | CP.PCM.CON ---
History of Present Illness - History of Present Illness History of Present Illness: The pt is a 77 yo female, with CAD, s/p cabg several yerss ago, and copd. Pt has not been able to stop smoking. Although her abdominal aorta is only slightly dilated, a previous ct showed a thrombus, and the patient has been o warfarin. Subsequent US, the thrombus wsa not seen. pt has cough, increasing dyspnea. CXR does not show CHF. ECG is normal. INR is 1.9, . pt reports occ mild nosebleed. She also has some leg pain in the left knee area. Review of Systems - Review of Systems All systems: reviewed and no additional remarkable complaints except (as above) Past Patient History - Past Medical History & Family History Past Medical History?: Yes - Past Social History Smoking Status: Light Smoker < 10 Cigarettes Daily - CARDIAC Hx Hypertension: Yes - PULMONARY Hx Chronic Obstructive Pulmonary Disease (COPD): Yes - NEUROLOGICAL Hx Neurological Disorder: No - HEENT Hx HEENT Problems: Yes Hx Cataracts: Yes (BILAT. IOL DONE) - RENAL Hx Chronic Kidney Disease: Yes - ENDOCRINE/METABOLIC Hx Endocrine Disorders: Yes Hx Diabetes Mellitus Type 2: Yes - HEMATOLOGICAL/ONCOLOGICAL Hx Blood Disorders: No - INTEGUMENTARY Hx Dermatological Problems: No - MUSCULOSKELETAL/RHEUMATOLOGICAL Hx Arthritis: Yes - GASTROINTESTINAL Hx Diverticulitis: Yes Hx Gastritis: Yes - GENITOURINARY/GYNECOLOGICAL Hx Genitourinary Disorders: No - PSYCHIATRIC Hx Substance Use: No - SURGICAL HISTORY Hx Appendectomy: Yes Hx Cholecystectomy: Yes Hx Coronary Artery Bypass Graft: Yes Hx Coronary Stent: Yes - ANESTHESIA Hx Anesthesia: Yes Hx Anesthesia Reactions: No Hx Malignant Hyperthermia: No Meds Allergies/Adverse Reactions: Allergies Allergy/AdvReac Type Severity Reaction Status Date / Time acetaminophen [From Percocet] Allergy Intermediate RASH Verified 11/22/17 10:51 moxifloxacin HCl Allergy Intermediate RASH Verified 12/10/17 19:10 [From Avelox] oxycodone HCl [From Percocet] Allergy Intermediate RASH Verified 12/10/17 19:10 prednisone Allergy Intermediate PAIN Verified 11/22/17 10:51 - Medications Medications: Current Medications Albuterol/Ipratropium (Duoneb 3 Mg/0.5 Mg (3 Ml) Ud) 3 ml INH RQ6 PRN PRN Reason: Shortness of Breath Arformoterol Tartrate (Brovana) 15 mcg INH RQ12 [facility] Aspirin (Ecotrin) 81 mg PO DAILY [facility] Last Admin: 06/26/18 09:25 Dose: 81 mg Budesonide (Pulmicort Respules) 0.5 mg INH RQ12 [facility] Bupropion HCl (Wellbutrin) 100 mg PO BID [facility] Last Admin: 06/26/18 09:24 Dose: 100 mg Dextrose (Dextrose 50% Inj) 0 ml IV STAT PRN; Protocol PRN Reason: Hypoglycemia Protocol Dextrose (Glutose 15) 0 gm PO ONCE PRN; Protocol PRN Reason: Hypoglycemia Protocol Famotidine (Pepcid) 20 mg PO DAILY [facility] Last Admin: 06/26/18 09:24 Dose: 20 mg Glucagon (Glucagen Diagnostic Kit) 0 mg IM STAT PRN; Protocol PRN Reason: Hypoglycemia Protocol Guaifenesin (Mucinex La) 600 mg PO BID [facility] Last Admin: 06/26/18 12:03 Dose: 600 mg Home Med (Patient's Own Medication) 1 tab PO TIDCC [facility] Last Admin: 06/26/18 12:07 Dose: 1 tab Hydrochlorothiazide (Microzide) 12.5 mg PO DAILY [facility] Last Admin: 06/26/18 09:24 Dose: 12.5 mg Ceftriaxone Sodium 1 gm/ (Sodium Chloride) 100 mls @ 100 mls/hr IVPB Q12H [facility]; Protocol Last Admin: 06/26/18 04:03 Dose: 100 mls/hr Dextrose (Dextrose 5% In Water 1000 Ml) 1,000 mls @ 0 mls/hr IV .Q0M PRN; Protocol PRN Reason: Hypoglycemia Protocol Insulin Aspart (Novolog) 0 unit SC ACHS [facility]; Protocol Last Admin: 06/26/18 12:04 Dose: Not Given Insulin Detemir (Levemir) 20 unit SC HS [facility] Last Admin: 06/25/18 22:10 Dose: 20 units Losartan Potassium (Cozaar) 50 mg PO DAILY [facility] Last Admin: 06/26/18 09:24 Dose: 50 mg Methylprednisolone (Solu-Medrol) 40 mg IVP Q8H [facility] Last Admin: 06/26/18 12:11 Dose: 40 mg Montelukast Sodium (Singulair) 10 mg PO DAILY [facility] Nicotine (Nicoderm Cq) 1 patch TD DAILY [facility] Last Admin: 06/26/18 09:24 Dose: 1 patch Pioglitazone HCl (Actos) 15 mg PO DAILY [facility] Last Admin: 06/26/18 09:24 Dose: 15 mg Saccharomyces Boulardii (Florastor) 250 mg PO BID [facility] Last Admin: 06/26/18 09:25 Dose: 250 mg Warfarin Sodium (Coumadin) 4 mg PO 1800 [facility] Stop: 06/26/18 18:01 Physical Exam - Constitutional Appears: Older Than Stated Age - Head Exam Head Exam: ATRAUMATIC - Eye Exam Eye Exam: EOMI Pupil Exam: NORMAL ACCOMODATION - ENT Exam ENT Exam: Mucous Membranes Moist - Respiratory Exam Respiratory Exam: Decreased Breath Sounds - Cardiovascular Exam Cardiovascular Exam: REGULAR RHYTHM - GI/Abdominal Exam GI & Abdominal Exam: Normal Bowel Sounds - Exam External exam: NORMAL EXTERNAL EXAM - Extremities Exam Extremities exam: Positive for: normal inspection - Back Exam Back exam: NORMAL INSPECTION - Neurological Exam Neurological exam: Alert, CN II-XII Intact, Oriented x3 Results - Vital Signs Recent Vital Signs: Last Vital Signs Temp 98.7 F 06/26/18 07:30 Pulse 78 06/26/18 08:48 Resp 18 06/26/18 07:30 BP 100/71 06/26/18 07:30 Pulse Ox 94 L 06/26/18 08:48 - Labs Result Diagrams: 06/26/18 06:30 06/26/18 06:30 Labs: Laboratory Results - last 24 hr 06/25/18 06/25/18 06/25/18 15:44 15:44 19:49 WBC RBC Hgb Hct MCV MCH MCHC RDW Plt Count MPV Neut % (Auto) Lymph % (Auto) [place] % (Auto) Eos % (Auto) Baso % (Auto) Neut # (Auto) Lymph # (Auto) [place] # (Auto) Eos # (Auto) Baso # (Auto) Neutrophils % (Manual) Band Neutrophils % Lymphocytes % (Manual) Monocytes % (Manual) Platelet Estimate RBC Morphology PT 20.8 H INR 1.9 APTT 46 H Sodium Potassium Chloride Carbon Dioxide Anion Gap BUN Creatinine Est GFR ( Amer) Est GFR (Non-Af Amer) POC Glucose (mg/dL) Random Glucose Calcium Phosphorus Magnesium Total Bilirubin AST ALT Alkaline Phosphatase Total Protein Albumin Globulin Albumin/Globulin Ratio Influenza Typ A,B (EIA) Negative for flu a/b Ur L.pneumophila Ag Mycoplasma pneumon IgM Negative S. pneumoniae Antigen 0406/25/18 06/25/18 20:51 21:41 21:41 WBC RBC Hgb Hct MCV MCH MCHC RDW Plt Count MPV Neut % (Auto) Lymph % (Auto) [place] % (Auto) Eos % (Auto) Baso % (Auto) Neut # (Auto) Lymph # (Auto) [place] # (Auto) Eos # (Auto) Baso # (Auto) Neutrophils % (Manual) Band Neutrophils % Lymphocytes % (Manual) Monocytes % (Manual) Platelet Estimate RBC Morphology PT INR APTT Sodium Potassium Chloride Carbon Dioxide Anion Gap BUN Creatinine Est GFR ( Amer) Est GFR (Non-Af Amer) POC Glucose (mg/dL) 238 H Random Glucose Calcium Phosphorus Magnesium Total Bilirubin AST ALT Alkaline Phosphatase Total Protein Albumin Globulin Albumin/Globulin Ratio Influenza Typ A,B (EIA) Ur L.pneumophila Ag Negative Mycoplasma pneumon IgM S. pneumoniae Antigen Negative 06/26/18 06/26/18 06/26/18 06:30 06:30 06:30 WBC 7.5 RBC 4.35 Hgb 13.6 Hct 41.4 MCV 95.3 MCH 31.3 H MCHC 32.9 L RDW 13.8 Plt Count 190 MPV 9.5 Neut % (Auto) 90.2 H Lymph % (Auto) 7.2 L [place] % (Auto) 2.5 Eos % (Auto) 0.0 Baso % (Auto) 0.1 Neut # (Auto) 6.8 Lymph # (Auto) 0.5 L [place] # (Auto) 0.2 Eos # (Auto) 0.0 Baso # (Auto) 0.0 Neutrophils % (Manual) 91 H Band Neutrophils % 1 Lymphocytes % (Manual) 4 L Monocytes % (Manual) 4 Platelet Estimate Normal RBC Morphology Normal PT 21.2 H INR 1.9 APTT 43 H Sodium 138 Potassium 5.0 Chloride 104 Carbon Dioxide 26 Anion Gap 13 BUN 36 H Creatinine 1.2 Est GFR ( Amer) 53 Est GFR (Non-Af Amer) 43 POC Glucose (mg/dL) Random Glucose 200 H Calcium 9.0 Phosphorus 3.1 Magnesium 2.1 Total Bilirubin 0.2 AST 19 ALT < 6 L Alkaline Phosphatase 50 Total Protein 7.1 Albumin 3.7 Globulin 3.4 Albumin/Globulin Ratio 1.1 Influenza Typ A,B (EIA) Ur L.pneumophila Ag Mycoplasma pneumon IgM S. pneumoniae Antigen 06/26/18 11:38 WBC RBC Hgb Hct MCV MCH MCHC RDW Plt Count MPV Neut % (Auto) Lymph % (Auto) [place] % (Auto) Eos % (Auto) Baso % (Auto) Neut # (Auto) Lymph # (Auto) [place] # (Auto) Eos # (Auto) Baso # (Auto) Neutrophils % (Manual) Band Neutrophils % Lymphocytes % (Manual) Monocytes % (Manual) Platelet Estimate RBC Morphology PT INR APTT Sodium Potassium Chloride Carbon Dioxide Anion Gap BUN Creatinine Est GFR ( Amer) Est GFR (Non-Af Amer) POC Glucose (mg/dL) 100 Random Glucose Calcium Phosphorus Magnesium Total Bilirubin AST ALT Alkaline Phosphatase Total Protein Albumin Globulin Albumin/Globulin Ratio Influenza Typ A,B (EIA) Ur L.pneumophila Ag Mycoplasma pneumon IgM S. pneumoniae Antigen - EKG Data EKG Interpreted by: Myself EKG shows normal: Sinus rhythm Rate: Normal (normal ecg) Assessment & Plan - Assessment and Plan (Free Text) Assessment: 1. CAD is stable. 2. COPD exacerbation 3. Neg US for DVT; pt has been on warfarin. 4. Statin 5. warfarin with target INR 2.0 to 2.5
--- NOTE | 2018-06-26 14:31 | CP.PCM.PN ---
<Thomas,Madaser - Last Filed: 06/26/18 14:27> Subjective - Date & Time of Evaluation Date of Evaluation: 06/26/18 Time of Evaluation: 14:27 - Subjective Subjective: Pulm Progress Note for Dr. Leija's service S/E at bedside. No acute complaints Denies sob, cp, n/v, constipaiton or diarrhea. Objective - Vital Signs/Intake and Output Vital Signs (last 24 hours): Temp Pulse Resp BP Pulse Ox 98.7 F 78 18 100/71 94 L 06/26/18 07:30 06/26/18 08:48 06/26/18 07:30 06/26/18 07:30 06/26/18 08:48 Intake and Output: 06/26/18 06/26/18 06:59 18:59 Intake Total 250 Balance 250 - Medications Medications: Current Medications Albuterol/Ipratropium (Duoneb 3 Mg/0.5 Mg (3 Ml) Ud) 3 ml INH RQ6 PRN PRN Reason: Shortness of Breath Arformoterol Tartrate (Brovana) 15 mcg INH RQ12 [facility] Aspirin (Ecotrin) 81 mg PO DAILY [facility] Last Admin: 06/26/18 09:25 Dose: 81 mg Budesonide (Pulmicort Respules) 0.5 mg INH RQ12 [facility] Bupropion HCl (Wellbutrin) 100 mg PO BID [facility] Last Admin: 06/26/18 09:24 Dose: 100 mg Dextrose (Dextrose 50% Inj) 0 ml IV STAT PRN; Protocol PRN Reason: Hypoglycemia Protocol Dextrose (Glutose 15) 0 gm PO ONCE PRN; Protocol PRN Reason: Hypoglycemia Protocol Famotidine (Pepcid) 20 mg PO DAILY [facility] Last Admin: 06/26/18 09:24 Dose: 20 mg Glucagon (Glucagen Diagnostic Kit) 0 mg IM STAT PRN; Protocol PRN Reason: Hypoglycemia Protocol Guaifenesin (Mucinex La) 600 mg PO BID [facility] Last Admin: 06/26/18 12:03 Dose: 600 mg Home Med (Patient's Own Medication) 1 tab PO TIDCC [facility] Last Admin: 06/26/18 12:07 Dose: 1 tab Hydrochlorothiazide (Microzide) 12.5 mg PO DAILY [facility] Last Admin: 06/26/18 09:24 Dose: 12.5 mg Ceftriaxone Sodium 1 gm/ (Sodium Chloride) 100 mls @ 100 mls/hr IVPB Q12H [facility]; Protocol Last Admin: 06/26/18 04:03 Dose: 100 mls/hr Dextrose (Dextrose 5% In Water 1000 Ml) 1,000 mls @ 0 mls/hr IV .Q0M PRN; Protocol PRN Reason: Hypoglycemia Protocol Insulin Aspart (Novolog) 0 unit SC ACHS [facility]; Protocol Last Admin: 06/26/18 12:04 Dose: Not Given Insulin Detemir (Levemir) 20 unit SC HS [facility] Last Admin: 06/25/18 22:10 Dose: 20 units Losartan Potassium (Cozaar) 50 mg PO DAILY [facility] Last Admin: 06/26/18 09:24 Dose: 50 mg Methylprednisolone (Solu-Medrol) 40 mg IVP Q8H [facility] Last Admin: 06/26/18 12:11 Dose: 40 mg Montelukast Sodium (Singulair) 10 mg PO DAILY [facility] Nicotine (Nicoderm Cq) 1 patch TD DAILY [facility] Last Admin: 06/26/18 09:24 Dose: 1 patch Pioglitazone HCl (Actos) 15 mg PO DAILY [facility] Last Admin: 06/26/18 09:24 Dose: 15 mg Saccharomyces Boulardii (Florastor) 250 mg PO BID [facility] Last Admin: 06/26/18 09:25 Dose: 250 mg Warfarin Sodium (Coumadin) 4 mg PO 1800 [facility] Stop: 06/26/18 18:01 - Labs Labs: 06/26/18 06:30 06/26/18 06:30 PT 21.2 SECONDS (9.7-12.2) H 06/26/18 06:30 INR 1.9 06/26/18 06:30 APTT 43 SECONDS (21-34) H 06/26/18 06:30 - Constitutional Appears: Non-toxic, No Acute Distress - Head Exam Head Exam: NORMAL INSPECTION, NORMOCEPHALIC - Eye Exam Eye Exam: EOMI, Normal appearance - ENT Exam ENT Exam: Mucous Membranes Moist - Respiratory Exam Respiratory Exam: Decreased Breath Sounds, NORMAL BREATHING PATTERN. absent: Rales, Rhonchi, Wheezes - Cardiovascular Exam Cardiovascular Exam: REGULAR RHYTHM, +S1, +S2 - GI/Abdominal Exam GI & Abdominal Exam: Soft, Normal Bowel Sounds - Extremities Exam Extremities Exam: Normal Inspection. absent: Calf Tenderness, Pedal Edema - Neurological Exam Neurological Exam: Awake, Oriented x3 - Psychiatric Exam Psychiatric exam: Normal Affect, Normal Mood - Skin Skin Exam: Dry, Intact, Normal Color Assessment and Plan - Assessment and Plan (Free Text) Assessment: A: COPD exacerbation ADRIANNA coronary artery disease status post CABG Diabetes Hypertension P: Singulair 10 daily IV metyhlprednisolone 40mg ivp q8h Pulmicort 0.5mg inh rq12 Brovana 15mcg inh rq12 Duoneb q6h prn IV ceftraixone 1gm q12h Further medical management as per primary for chronic conditions <Konstantin Leija - Last Filed: 06/26/18 15:28> Objective - Vital Signs/Intake and Output Vital Signs (last 24 hours): Temp Pulse Resp BP Pulse Ox 98.7 F 78 18 100/71 94 L 06/26/18 07:30 06/26/18 08:48 06/26/18 07:30 06/26/18 07:30 06/26/18 08:48 Intake and Output: 06/26/18 06/26/18 06:59 18:59 Intake Total 250 Balance 250 - Medications Medications: Current Medications Albuterol/Ipratropium (Duoneb 3 Mg/0.5 Mg (3 Ml) Ud) 3 ml INH RQ6 PRN PRN Reason: Shortness of Breath Arformoterol Tartrate (Brovana) 15 mcg INH RQ12 [facility] Aspirin (Ecotrin) 81 mg PO DAILY [facility] Last Admin: 06/26/18 09:25 Dose: 81 mg Budesonide (Pulmicort Respules) 0.5 mg INH RQ12 [facility] Bupropion HCl (Wellbutrin) 100 mg PO BID [facility] Last Admin: 06/26/18 09:24 Dose: 100 mg Dextrose (Dextrose 50% Inj) 0 ml IV STAT PRN; Protocol PRN Reason: Hypoglycemia Protocol Dextrose (Glutose 15) 0 gm PO ONCE PRN; Protocol PRN Reason: Hypoglycemia Protocol Famotidine (Pepcid) 20 mg PO DAILY [facility] Last Admin: 06/26/18 09:24 Dose: 20 mg Glucagon (Glucagen Diagnostic Kit) 0 mg IM STAT PRN; Protocol PRN Reason: Hypoglycemia Protocol Guaifenesin (Mucinex La) 600 mg PO BID [facility] Last Admin: 06/26/18 12:03 Dose: 600 mg Home Med (Patient's Own Medication) 1 tab PO TIDCC [facility] Last Admin: 06/26/18 12:07 Dose: 1 tab Hydrochlorothiazide (Microzide) 12.5 mg PO DAILY [facility] Last Admin: 06/26/18 09:24 Dose: 12.5 mg Ceftriaxone Sodium 1 gm/ (Sodium Chloride) 100 mls @ 100 mls/hr IVPB Q12H [facility]; Protocol Last Admin: 06/26/18 04:03 Dose: 100 mls/hr Dextrose (Dextrose 5% In Water 1000 Ml) 1,000 mls @ 0 mls/hr IV .Q0M PRN; Protocol PRN Reason: Hypoglycemia Protocol Insulin Aspart (Novolog) 0 unit SC ACHS [facility]; Protocol Last Admin: 06/26/18 12:04 Dose: Not Given Insulin Detemir (Levemir) 20 unit SC HS [facility] Last Admin: 06/25/18 22:10 Dose: 20 units Losartan Potassium (Cozaar) 50 mg PO DAILY [facility] Last Admin: 06/26/18 09:24 Dose: 50 mg Methylprednisolone (Solu-Medrol) 40 mg IVP Q8H [facility] Last Admin: 06/26/18 12:11 Dose: 40 mg Montelukast Sodium (Singulair) 10 mg PO DAILY [facility] Last Admin: 06/26/18 14:33 Dose: 10 mg Nicotine (Nicoderm Cq) 1 patch TD DAILY [facility] Last Admin: 06/26/18 09:24 Dose: 1 patch Pioglitazone HCl (Actos) 15 mg PO DAILY [facility] Last Admin: 06/26/18 09:24 Dose: 15 mg Saccharomyces Boulardii (Florastor) 250 mg PO BID [facility] Last Admin: 06/26/18 09:25 Dose: 250 mg Warfarin Sodium (Coumadin) 4 mg PO 1800 [facility] Stop: 06/26/18 18:01 - Labs Labs: 06/26/18 06:30 06/26/18 06:30 PT 21.2 SECONDS (9.7-12.2) H 06/26/18 06:30 INR 1.9 06/26/18 06:30 APTT 43 SECONDS (21-34) H 06/26/18 06:30 Assessment and Plan (1) COPD exacerbation Status: Acute Attending/Attestation - Attestation I have personally seen and examined this patient.: Yes I have fully participated in the care of the patient.: Yes I have reviewed all pertinent clinical information, including history, physical exam and plan: Yes Notes (Text): 06/26/18 15:27 Patient seen and examined Breathing better but still having dyspnea on exertion Continue present treatment CAT scan of the chest consistent with bullous disease
--- NOTE | 2018-06-26 16:40 | CT ---
Date of service: 06/26/2018 PROCEDURE: CT Chest without contrast HISTORY: copd, pain, r/o pneumonia COMPARISON: Chest CT without contrast 12/11/2017. TECHNIQUE: Contiguous axial images were obtained through the chest without intravenous contrast enhancement. Sagittal and coronal reconstructions were performed. Radiation dose: Total exam DLP = 389.96 mGy-cm. This CT exam was performed using one or more of the following dose reduction techniques: Automated exposure control, adjustment of the mA and/or kV according to patient size, and/or use of iterative reconstruction technique. FINDINGS: LUNGS: Mild centrilobular emphysematous changes are reiterated including apical predominant limited emphysema. Pulmonary fibrotic changes are mild diffusely and again appear concentrated at the medial right lower lobe, though still mild there. Atelectasis is favored over infiltrate at the right lower lobe base with none on the left. A stricture is identified at a medial subsegmental right lower lobe airway. Peribronchial thickening is reiterated at the airways at the bilateral lower lobes once again. MEDIASTINUM: The thoracic inlet remains unremarkable. Non aneurysmal but atherosclerotic aorta is appreciate with various mural calcifications again evident. Normal sized heart with relatively extensive coronary artery calcifications reiterated.. Main pulmonary artery unremarkable. No vascular congestion. Tiny calcified right hilar lymph nodes again evident no significant lymphadenopathy. PLEURA: No pleural fluid. No pneumothorax. BONES: No fracture. No destructive lesion. Sternotomy wires reiterated. UPPER ABDOMEN: 8 mm exophytic lesion is again seen related to the upper pole left kidney. OTHER FINDINGS: None. IMPRESSION: 1. Limited atelectasis favored over infiltrate at the right lower lobe base. COPD changes are reiterated as per above. Limited stricture again noted and a medial basilar subsegmental airway of the right lower lobe. 2. No pneumothorax, pleural or pericardial effusion. No significant lymphadenopathy. 3. Incidental, stable small exophytic density seen related to the upper pole left kidney poorly characterized in this unenhanced CT exam.
[2018-06-26] MEDS: Insulin Detemir 100 units/ml Vial (Levemir) SC SCH (21:28)
[2018-06-27 01:16] VITALS: RESP 20
[2018-06-27] MEDS: MethylPREDNISolone 40 mg Vial IVP SCH ×3 (04:25→21:00)
[2018-06-27] MEDS: Budesonide 0.5 mg/2 ml Inhal Susp UD INH SCH ×2 (07:40→19:49)
[2018-06-27] MEDS: Arformoterol 15 mcg/2 ml Inh Sol INH SCH (07:54)
[2018-06-27] MEDS: CREON PO SCH ×3 (08:16→17:46)
[2018-06-27] MEDS: (Novolog) Insulin Aspart, Recombinant 100 u/ml 10 ml vial SC SCH ×4 (08:17→21:42)
[2018-06-27 08:37] LABS: BASO % 0.1 % (0.0-2.0); HEMOGLOBIN 13.5 g/dL (11.0-16.0); LYMPH # 0.9 K/uL (1.0-4.3); LYMPH % 5.7 % (20.0-40.0); MEAN CELL VOLUME 95.9 fL (81.0-99.0); MEAN CORPUSCULAR HEMOGLOBIN 31.2 pg (27.0-31.0); MEAN CORPUSCULAR HGB CONC 32.5 g/dL (33.0-37.0); MEAN PLATELET VOLUME 9.9 fL (7.2-11.7); MONO # 0.4 K/uL (0.0-0.8); MONO % 2.9 % (0.0-10.0); NEUT % 91.3 % (50.0-75.0); NRBC % 0.2 % (0.0-2.0); PLATELET COUNT 226 K/uL (130-400); RBC 4.34 Mil/uL (3.80-5.20); RED CELL DISTRIBUTION WIDTH 13.8 % (11.5-14.5)
[2018-06-27 08:44] LABS: INR 2.4; PROTHROMBIN TIME 25.9 SECONDS (9.7-12.2)
[2018-06-27 08:49] LABS: WHITE BLOOD COUNT 15.3 K/uL (4.8-10.8)
[2018-06-27 08:57] LABS: ALB/GLOB RATIO 1.2 (1.0-2.1); ALT/SGPT < 6 U/L (9-52); AST/SGOT 25 U/L (14-36); BLOOD UREA NITROGEN 42 mg/dL (7-17); CALCIUM 8.5 mg/dl (8.6-10.4); GFR NON-AFRICAN AMERICAN 54
[2018-06-27] MEDS: guaiFENesin 600 mg ER Tab PO SCH ×2 (09:56→17:41)
[2018-06-27] MEDS: Saccharomyces Boulardi 250 mg Cap PO SCH ×2 (09:56→17:42)
[2018-06-27 10:33] LABS: BANDS 4 % (0-2); LYMPHOCYTE 5 % (20-40); MONOCYTE 3 % (0-10); NEUTROPHIL 88 % (50-75); PLATELET ESTIMATE NORMAL (NORMAL); TOTAL CELLS COUNTED 100
--- NOTE | 2018-06-27 11:54 | CP.PCM.PN ---
<Kamran Guzman - Last Filed: 06/27/18 11:50> Subjective - Date & Time of Evaluation Date of Evaluation: 06/27/18 Time of Evaluation: 11:51 - Subjective Subjective: Pulm Progress Note for Dr. Leija's service S/E at bedside Complains of continued nonproductive cough Denies fevers, chills, cp, sob, n/v, constipation or diarrhea, and dysuria. Objective - Vital Signs/Intake and Output Vital Signs (last 24 hours): Temp Pulse Resp BP Pulse Ox 98.2 F 53 L 20 103/50 L 99 06/26/18 23:20 06/27/18 04:19 06/26/18 23:20 06/26/18 23:20 06/26/18 23:20 Intake and Output: 06/27/18 06/27/18 06:59 18:59 Intake Total 220 Balance 220 - Medications Medications: Current Medications Acetylcysteine (Acetylcysteine 20%) 4 ml INH Q12 [facility] Albuterol/Ipratropium (Duoneb 3 Mg/0.5 Mg (3 Ml) Ud) 3 ml INH RQ6 PRN PRN Reason: Shortness of Breath Arformoterol Tartrate (Brovana) 15 mcg INH RQ12 [facility] Last Admin: 06/27/18 07:54 Dose: Not Given Aspirin (Ecotrin) 81 mg PO DAILY [facility] Last Admin: 06/27/18 09:56 Dose: 81 mg Budesonide (Pulmicort Respules) 0.5 mg INH RQ12 [facility] Last Admin: 06/27/18 07:40 Dose: 0.5 mg Bupropion HCl (Wellbutrin) 100 mg PO BID [facility] Last Admin: 06/27/18 09:57 Dose: 100 mg Dextrose (Dextrose 50% Inj) 0 ml IV STAT PRN; Protocol PRN Reason: Hypoglycemia Protocol Dextrose (Glutose 15) 0 gm PO ONCE PRN; Protocol PRN Reason: Hypoglycemia Protocol Famotidine (Pepcid) 20 mg PO DAILY [facility] Last Admin: 06/27/18 09:55 Dose: 20 mg Glucagon (Glucagen Diagnostic Kit) 0 mg IM STAT PRN; Protocol PRN Reason: Hypoglycemia Protocol Guaifenesin (Mucinex La) 600 mg PO BID [facility] Last Admin: 06/27/18 09:56 Dose: 600 mg Home Med (Patient's Own Medication) 1 tab PO TIDCC [facility] Last Admin: 06/27/18 08:16 Dose: 1 tab Hydrochlorothiazide (Microzide) 12.5 mg PO DAILY [facility] Last Admin: 06/27/18 09:55 Dose: 12.5 mg Ceftriaxone Sodium 1 gm/ (Sodium Chloride) 100 mls @ 100 mls/hr IVPB Q12H [facility]; Protocol Last Admin: 06/27/18 03:21 Dose: 100 mls/hr Dextrose (Dextrose 5% In Water 1000 Ml) 1,000 mls @ 0 mls/hr IV .Q0M PRN; Protocol PRN Reason: Hypoglycemia Protocol Insulin Aspart (Novolog) 0 unit SC ACHS [facility]; Protocol Last Admin: 06/27/18 08:17 Dose: Not Given Insulin Detemir (Levemir) 20 unit SC HS [facility] Last Admin: 06/26/18 21:28 Dose: 20 units Losartan Potassium (Cozaar) 50 mg PO DAILY [facility] Last Admin: 06/27/18 09:56 Dose: 50 mg Methylprednisolone (Solu-Medrol) 40 mg IVP Q8H [facility] Last Admin: 06/27/18 04:25 Dose: 40 mg Montelukast Sodium (Singulair) 10 mg PO DAILY [facility] Last Admin: 06/27/18 09:59 Dose: 10 mg Nicotine (Nicoderm Cq) 1 patch TD DAILY [facility] Last Admin: 06/27/18 09:57 Dose: 1 patch Pioglitazone HCl (Actos) 15 mg PO DAILY [facility] Last Admin: 06/27/18 09:57 Dose: 15 mg Saccharomyces Boulardii (Florastor) 250 mg PO BID [facility] Last Admin: 06/27/18 09:56 Dose: 250 mg - Labs Labs: 06/27/18 08:23 06/27/18 08:23 PT 25.9 SECONDS (9.7-12.2) H 06/27/18 08:23 INR 2.4 D 06/27/18 08:23 APTT 40 SECONDS (21-34) H 06/27/18 08:23 - Constitutional Appears: Non-toxic, No Acute Distress - Head Exam Head Exam: NORMAL INSPECTION - Eye Exam Eye Exam: EOMI, Normal appearance - ENT Exam ENT Exam: Mucous Membranes Moist - Respiratory Exam Respiratory Exam: Decreased Breath Sounds, NORMAL BREATHING PATTERN. absent: Wheezes - Cardiovascular Exam Cardiovascular Exam: REGULAR RHYTHM, +S1, +S2 - GI/Abdominal Exam GI & Abdominal Exam: Soft, Normal Bowel Sounds - Neurological Exam Neurological Exam: Alert, Oriented x3 - Psychiatric Exam Psychiatric exam: Normal Mood - Skin Skin Exam: Dry, Intact, Warm Assessment and Plan - Assessment and Plan (Free Text) Assessment: A: COPD exacerbation ADRIANNA coronary artery disease status post CABG Diabetes Hypertension P: Singulair 10 daily IV metyhlprednisolone 40mg ivp q8h Pulmicort 0.5mg inh rq12 [facility] 15mcg inh rq12 Duoneb q6h prn IV ceftraixone 1gm q12h PNA studies negative CT chest findings consistent with COPD and bullous disease Further medical management as per primary for chronic conditions Dispo: continue current management until cough improves, further management as per primary team <Konstantin Leija S - Last Filed: 06/27/18 17:43> Objective - Vital Signs/Intake and Output Vital Signs (last 24 hours): Temp Pulse Resp BP Pulse Ox 98.3 F 61 20 114/63 95 06/27/18 15:52 06/27/18 15:52 06/27/18 15:52 06/27/18 15:52 06/27/18 15:52 Intake and Output: 06/27/18 06/27/18 06:59 18:59 Intake Total 220 480 Balance 220 480 - Medications Medications: Current Medications Acetylcysteine (Acetylcysteine 20%) 4 ml INH RQ12 [facility] Last Admin: 06/27/18 14:49 Dose: Not Given Albuterol/Ipratropium (Duoneb 3 Mg/0.5 Mg (3 Ml) Ud) 3 ml INH RQ6 PRN PRN Reason: Shortness of Breath Arformoterol Tartrate (Brovana) 15 mcg INH RQ12 [facility] Last Admin: 06/27/18 07:54 Dose: Not Given Aspirin (Ecotrin) 81 mg PO DAILY [facility] Last Admin: 06/27/18 09:56 Dose: 81 mg Budesonide (Pulmicort Respules) 0.5 mg INH RQ12 [facility] Last Admin: 06/27/18 07:40 Dose: 0.5 mg Bupropion HCl (Wellbutrin) 100 mg PO BID [facility] Last Admin: 06/27/18 09:57 Dose: 100 mg Dextrose (Dextrose 50% Inj) 0 ml IV STAT PRN; Protocol PRN Reason: Hypoglycemia Protocol Dextrose (Glutose 15) 0 gm PO ONCE PRN; Protocol PRN Reason: Hypoglycemia Protocol Famotidine (Pepcid) 20 mg PO DAILY [facility] Last Admin: 06/27/18 09:55 Dose: 20 mg Glucagon (Glucagen Diagnostic Kit) 0 mg IM STAT PRN; Protocol PRN Reason: Hypoglycemia Protocol Guaifenesin (Mucinex La) 600 mg PO BID [facility] Last Admin: 06/27/18 09:56 Dose: 600 mg Home Med (Patient's Own Medication) 1 tab PO TIDCC [facility] Last Admin: 06/27/18 12:32 Dose: 1 tab Hydrochlorothiazide (Microzide) 12.5 mg PO DAILY [facility] Last Admin: 06/27/18 09:55 Dose: 12.5 mg Ceftriaxone Sodium 1 gm/ (Sodium Chloride) 100 mls @ 100 mls/hr IVPB Q12H [facility]; Protocol Last Admin: 06/27/18 03:21 Dose: 100 mls/hr Dextrose (Dextrose 5% In Water 1000 Ml) 1,000 mls @ 0 mls/hr IV .Q0M PRN; Protocol PRN Reason: Hypoglycemia Protocol Insulin Aspart (Novolog) 0 unit SC [facility]; Protocol Last Admin: 06/27/18 12:30 Dose: Not Given Insulin Detemir (Levemir) 20 unit SC HS [facility] Last Admin: 06/26/18 21:28 Dose: 20 units Losartan Potassium (Cozaar) 50 mg PO DAILY [facility] Last Admin: 06/27/18 09:56 Dose: 50 mg Methylprednisolone (Solu-Medrol) 40 mg IVP Q8H [facility] Last Admin: 06/27/18 12:34 Dose: 40 mg Montelukast Sodium (Singulair) 10 mg PO DAILY [facility] Last Admin: 06/27/18 09:59 Dose: 10 mg Nicotine (Nicoderm Cq) 1 patch TD DAILY [facility] Last Admin: 06/27/18 09:57 Dose: 1 patch Pioglitazone HCl (Actos) 15 mg PO DAILY [facility] Last Admin: 06/27/18 09:57 Dose: 15 mg Saccharomyces Boulardii (Florastor) 250 mg PO BID [facility] Last Admin: 06/27/18 09:56 Dose: 250 mg - Labs Labs: 06/27/18 08:23 06/27/18 08:23 PT 25.9 SECONDS (9.7-12.2) H 06/27/18 08:23 INR 2.4 D 06/27/18 08:23 APTT 40 SECONDS (21-34) H 06/27/18 08:23 Assessment and Plan (1) COPD exacerbation Status: Acute Attending/Attestation - Attestation I have personally seen and examined this patient.: Yes I have fully participated in the care of the patient.: Yes I have reviewed all pertinent clinical information, including history, physical exam and plan: Yes Notes (Text): 06/27/18 17:43 Patient seen and examined Taper steroids Antitussive Continue nebulizer treatment
[2018-06-27] MEDS ORDERED: Acetylcysteine 20% Inhal Soln (4ml) INH SCH (12:45)
--- NOTE | 2018-06-27 14:07 | CARD ---
APPROVED REPORT Date of service: 06/25/2018 EKG Measurement Heart [id number] <Conclusion> Normal sinus rhythm Normal ECG
[2018-06-27] MEDS: Albuterol-Ipratrop 3 mg / 0.5 (3 ml) UD INH PRN (19:49)
[2018-06-27] MEDS: Acetylcysteine 20% Inhal Soln (4ml) INH SCH (19:49)
[2018-06-27] MEDS: Insulin Detemir 100 units/ml Vial (Levemir) SC SCH (21:43)
[2018-06-28] MEDS: Acetylcysteine 20% Inhal Soln (4ml) INH SCH ×2 (02:57→08:34)
[2018-06-28] MEDS: MethylPREDNISolone 40 mg Vial IVP SCH ×3 (04:16→20:45)
[2018-06-28 06:53] LABS: INR 2.5; PROTHROMBIN TIME 27.4 SECONDS (9.7-12.2)
[2018-06-28 06:54] LABS: BASO % 0.1 % (0.0-2.0); HEMOGLOBIN 13.7 g/dL (11.0-16.0); LYMPH # 0.8 K/uL (1.0-4.3); LYMPH % 5.5 % (20.0-40.0); MEAN CELL VOLUME 95.3 fL (81.0-99.0); MEAN CORPUSCULAR HEMOGLOBIN 31.3 pg (27.0-31.0); MEAN CORPUSCULAR HGB CONC 32.8 g/dL (33.0-37.0); MEAN PLATELET VOLUME 9.7 fL (7.2-11.7); MONO # 0.5 K/uL (0.0-0.8); MONO % 3.3 % (0.0-10.0); NEUT # 12.7 K/uL (1.8-7.0); NEUT % 91.1 % (50.0-75.0); NRBC % 0.1 % (0.0-2.0); PLATELET COUNT 214 K/uL (130-400); RBC 4.38 Mil/uL (3.80-5.20); RED CELL DISTRIBUTION WIDTH 14.2 % (11.5-14.5); WHITE BLOOD COUNT 13.9 K/uL (4.8-10.8)
[2018-06-28 07:00] LABS: ALB/GLOB RATIO 1.2 (1.0-2.1); ALBUMIN 3.6 g/dL (3.5-5.0); ALT/SGPT < 6 U/L (9-52); AST/SGOT 18 U/L (14-36); BLOOD UREA NITROGEN 37 mg/dL (7-17); CALCIUM 8.4 mg/dl (8.6-10.4); GFR NON-AFRICAN AMERICAN 54
[2018-06-28] MEDS: (Novolog) Insulin Aspart, Recombinant 100 u/ml 10 ml vial SC SCH ×4 (08:31→21:08)
[2018-06-28] MEDS: Budesonide 0.5 mg/2 ml Inhal Susp UD INH SCH ×2 (08:35→20:20)
[2018-06-28] MEDS: Albuterol-Ipratrop 3 mg / 0.5 (3 ml) UD INH PRN (08:35)
[2018-06-28] MEDS: Arformoterol 15 mcg/2 ml Inh Sol INH SCH ×2 (08:39→20:20)
[2018-06-28] MEDS: CREON PO SCH ×3 (08:40→18:16)
[2018-06-28 08:54] LABS: BANDS 2 % (0-2); LYMPHOCYTE 8 % (20-40); MONOCYTE 3 % (0-10); NEUTROPHIL 87 % (50-75); PLATELET ESTIMATE NORMAL (NORMAL); TOTAL CELLS COUNTED 100
--- NOTE | 2018-06-28 08:54 | CP.PCM.PN ---
<Thomas,Madaser - Last Filed: 06/28/18 10:37> Subjective - Date & Time of Evaluation Date of Evaluation: 06/28/18 Time of Evaluation: 08:52 - Subjective Subjective: Pulm Progress Note for Dr. Leija's service S/E at bedside Offers severe cough with no sputum production Denies f/c, cp, sob, n/v, constipation or diarrhea, and dysuria Objective - Vital Signs/Intake and Output Vital Signs (last 24 hours): Temp Pulse Resp BP Pulse Ox 97.5 F L 80 20 111/61 97 06/28/18 07:00 06/28/18 07:00 06/28/18 07:00 06/28/18 07:00 06/28/18 07:00 Intake and Output: 06/28/18 06/28/18 06:59 18:59 Intake Total 220 Balance 220 - Medications Medications: Current Medications Acetylcysteine (Acetylcysteine 20%) 4 ml INH Q6H [facility] Last Admin: 06/28/18 08:34 Dose: Not Given Albuterol/Ipratropium (Duoneb 3 Mg/0.5 Mg (3 Ml) Ud) 3 ml INH RQ6 PRN PRN Reason: Shortness of Breath Last Admin: 06/28/18 08:35 Dose: 3 ml Arformoterol Tartrate (Brovana) 15 mcg INH RQ12 [facility] Last Admin: 06/28/18 08:39 Dose: Not Given Aspirin (Ecotrin) 81 mg PO DAILY [facility] Last Admin: 06/27/18 09:56 Dose: 81 mg Budesonide (Pulmicort Respules) 0.5 mg INH RQ12 [facility] Last Admin: 06/28/18 08:35 Dose: 0.5 mg Bupropion HCl (Wellbutrin) 100 mg PO BID [facility] Last Admin: 06/27/18 18:11 Dose: 100 mg Dextrose (Dextrose 50% Inj) 0 ml IV STAT PRN; Protocol PRN Reason: Hypoglycemia Protocol Dextrose (Glutose 15) 0 gm PO ONCE PRN; Protocol PRN Reason: Hypoglycemia Protocol Famotidine (Pepcid) 20 mg PO DAILY [facility] Last Admin: 06/27/18 09:55 Dose: 20 mg Glucagon (Glucagen Diagnostic Kit) 0 mg IM STAT PRN; Protocol PRN Reason: Hypoglycemia Protocol Guaifenesin (Mucinex La) 600 mg PO BID [facility] Last Admin: 06/27/18 17:41 Dose: 600 mg Home Med (Patient's Own Medication) 1 tab PO TIDCC [facility] Last Admin: 06/28/18 08:40 Dose: 1 tab Hydrochlorothiazide (Microzide) 12.5 mg PO DAILY [facility] Last Admin: 06/27/18 09:55 Dose: 12.5 mg Ceftriaxone Sodium 1 gm/ (Sodium Chloride) 100 mls @ 100 mls/hr IVPB Q12H [facility]; Protocol Last Admin: 06/28/18 04:17 Dose: 100 mls/hr Dextrose (Dextrose 5% In Water 1000 Ml) 1,000 mls @ 0 mls/hr IV .Q0M PRN; Protocol PRN Reason: Hypoglycemia Protocol Insulin Aspart (Novolog) 0 unit SC ACHS [facility]; Protocol Last Admin: 06/28/18 08:31 Dose: 2 units Insulin Detemir (Levemir) 20 unit SC HS [facility] Last Admin: 06/27/18 21:43 Dose: 20 units Losartan Potassium (Cozaar) 50 mg PO DAILY [facility] Last Admin: 06/27/18 09:56 Dose: 50 mg Methylprednisolone (Solu-Medrol) 40 mg IVP Q8H [facility] Last Admin: 06/28/18 04:16 Dose: 40 mg Montelukast Sodium (Singulair) 10 mg PO DAILY [facility] Last Admin: 06/27/18 09:59 Dose: 10 mg Nicotine (Nicoderm Cq) 1 patch TD DAILY [facility] Last Admin: 06/27/18 09:57 Dose: 1 patch Pioglitazone HCl (Actos) 15 mg PO DAILY [facility] Last Admin: 06/27/18 09:57 Dose: 15 mg Saccharomyces Boulardii (Florastor) 250 mg PO BID [facility] Last Admin: 06/27/18 17:42 Dose: 250 mg - Labs Labs: 06/28/18 06:36 06/28/18 06:36 PT 27.4 SECONDS (9.7-12.2) H 06/28/18 06:36 INR 2.5 06/28/18 06:36 APTT 41 SECONDS (21-34) H 06/28/18 06:36 - Constitutional Appears: Non-toxic, No Acute Distress - Head Exam Head Exam: NORMAL INSPECTION, NORMOCEPHALIC - Eye Exam Eye Exam: EOMI, Normal appearance. absent: Nystagmus, Scleral icterus - ENT Exam ENT Exam: Mucous Membranes Moist - Respiratory Exam Respiratory Exam: Clear to Ausculation Bilateral, NORMAL BREATHING PATTERN. absent: Rales, Rhonchi, Wheezes - Cardiovascular Exam Cardiovascular Exam: REGULAR RHYTHM, +S1, +S2 - GI/Abdominal Exam GI & Abdominal Exam: Soft, Normal Bowel Sounds. absent: Distended, Firm, Guarding, Rigid, Tenderness - Extremities Exam Extremities Exam: Normal Inspection. absent: Calf Tenderness, Pedal Edema - Neurological Exam Neurological Exam: Awake, Oriented x3 - Psychiatric Exam Psychiatric exam: Normal Affect, Normal Mood - Skin Skin Exam: Dry, Intact, Normal Color Assessment and Plan - Assessment and Plan (Free Text) Plan: A: COPD exacerbation ADRIANNA coronary artery disease status post CABG Diabetes Hypertension P: Singulair 10 daily IV metyhlprednisolone 40mg ivp q8h Pulmicort 0.5mg inh rq12 [facility] 15mcg inh rq12 Duoneb q6h prn Robitussin DM 10ml q4h [facility]; will consider phenergan if robitussin does not work IV ceftraixone 1gm q12h PNA studies negative CT chest findings consistent with COPD and bullous disease Recommend bipap or cpap at night Further medical management as per primary for chronic conditions Dispo: continue current management until cough improves, further management as per primary team <Konstantin Leija - Last Filed: 06/28/18 14:30> Objective - Vital Signs/Intake and Output Vital Signs (last 24 hours): Temp Pulse Resp BP Pulse Ox 97.5 F L 42 L 20 111/61 97 06/28/18 07:00 06/28/18 07:30 06/28/18 07:00 06/28/18 07:00 06/28/18 07:00 Intake and Output: 06/28/18 06/28/18 06:59 18:59 Intake Total 220 Balance 220 - Medications Medications: Current Medications Albuterol/Ipratropium (Duoneb 3 Mg/0.5 Mg (3 Ml) Ud) 3 ml INH RQ6 PRN PRN Reason: Shortness of Breath Last Admin: 06/28/18 08:35 Dose: 3 ml Arformoterol Tartrate (Brovana) 15 mcg INH RQ12 [facility] Last Admin: 06/28/18 08:39 Dose: Not Given Aspirin (Ecotrin) 81 mg PO DAILY [facility] Last Admin: 06/28/18 10:01 Dose: 81 mg Budesonide (Pulmicort Respules) 0.5 mg INH RQ12 [facility] Last Admin: 06/28/18 08:35 Dose: 0.5 mg Bupropion HCl (Wellbutrin) 100 mg PO BID [facility] Last Admin: 06/28/18 09:59 Dose: Not Given Dextrose (Dextrose 50% Inj) 0 ml IV STAT PRN; Protocol PRN Reason: Hypoglycemia Protocol Dextrose (Glutose 15) 0 gm PO ONCE PRN; Protocol PRN Reason: Hypoglycemia Protocol Famotidine (Pepcid) 20 mg PO DAILY [facility] Last Admin: 06/28/18 10:01 Dose: 20 mg Glucagon (Glucagen Diagnostic Kit) 0 mg IM STAT PRN; Protocol PRN Reason: Hypoglycemia Protocol Guaifenesin (Mucinex La) 600 mg PO BID [facility] Last Admin: 06/28/18 10:06 Dose: 600 mg Guaifenesin/Dextromethorphan (Robitussin Dm) 10 ml PO Q4H [facility] Last Admin: 06/28/18 13:32 Dose: 10 ml Home Med (Patient's Own Medication) 1 tab PO TIDCC [facility] Last Admin: 06/28/18 13:32 Dose: 1 tab Hydrochlorothiazide (Microzide) 12.5 mg PO DAILY [facility] Last Admin: 06/28/18 10:01 Dose: 12.5 mg Ceftriaxone Sodium 1 gm/ (Sodium Chloride) 100 mls @ 100 mls/hr IVPB Q12H [facility]; Protocol Last Admin: 06/28/18 04:17 Dose: 100 mls/hr Dextrose (Dextrose 5% In Water 1000 Ml) 1,000 mls @ 0 mls/hr IV .Q0M PRN; Protocol PRN Reason: Hypoglycemia Protocol Insulin Aspart (Novolog) 0 unit SC ACHS [facility]; Protocol Last Admin: 06/28/18 13:31 Dose: 2 units Insulin Detemir (Levemir) 20 unit SC HS [facility] Last Admin: 06/27/18 21:43 Dose: 20 units Losartan Potassium (Cozaar) 50 mg PO DAILY [facility] Last Admin: 06/28/18 10:02 Dose: 50 mg Methylprednisolone (Solu-Medrol) 40 mg IVP Q8H [facility] Last Admin: 06/28/18 13:32 Dose: 40 mg Montelukast Sodium (Singulair) 10 mg PO DAILY [facility] Last Admin: 06/28/18 10:02 Dose: 10 mg Nicotine (Nicoderm Cq) 1 patch TD DAILY [facility] Last Admin: 06/28/18 10:00 Dose: 1 patch Pioglitazone HCl (Actos) 15 mg PO DAILY [facility] Last Admin: 06/28/18 10:02 Dose: 15 mg Saccharomyces Boulardii (Florastor) 250 mg PO BID [facility] Last Admin: 06/27/18 17:42 Dose: 250 mg - Labs Labs: 06/28/18 06:36 06/28/18 06:36 PT 27.4 SECONDS (9.7-12.2) H 06/28/18 06:36 INR 2.5 06/28/18 06:36 APTT 41 SECONDS (21-34) H 06/28/18 06:36 Assessment and Plan (1) COPD exacerbation Status: Acute Attending/Attestation - Attestation I have personally seen and examined this patient.: Yes I have fully participated in the care of the patient.: Yes I have reviewed all pertinent clinical information, including history, physical exam and plan: Yes Notes (Text): 06/28/18 14:29 Patient seen and examined Still having dry cough Continue steroids and nebulizer treatment Add Phenergan with codeine
[2018-06-28] MEDS: guaiFENesin 600 mg ER Tab PO SCH ×2 (10:06→18:14)
[2018-06-28] MEDS: guaiFENesin DM 200 mg-20 mg/10 ml UD PO SCH ×4 (13:32→23:00)
[2018-06-28] MEDS: Saccharomyces Boulardi 250 mg Cap PO SCH (18:14)
[2018-06-28] MEDS: Insulin Detemir 100 units/ml Vial (Levemir) SC SCH (21:52)
[2018-06-29] MEDS: MethylPREDNISolone 40 mg Vial IVP SCH (04:11)
[2018-06-29] MEDS: guaiFENesin DM 200 mg-20 mg/10 ml UD PO SCH ×4 (04:11→14:41)
[2018-06-29 07:32] LABS: BASO % 0.3 % (0.0-2.0); HEMOGLOBIN 14.2 g/dL (11.0-16.0); LYMPH # 0.6 K/uL (1.0-4.3); LYMPH % 5.8 % (20.0-40.0); MEAN CELL VOLUME 95.5 fL (81.0-99.0); MEAN CORPUSCULAR HEMOGLOBIN 32.5 pg (27.0-31.0); MEAN PLATELET VOLUME 9.6 fL (7.2-11.7); MONO # 0.6 K/uL (0.0-0.8); MONO % 5.3 % (0.0-10.0); NEUT # 9.5 K/uL (1.8-7.0); NEUT % 88.6 % (50.0-75.0); PLATELET COUNT 227 K/uL (130-400); RBC 4.36 Mil/uL (3.80-5.20); RED CELL DISTRIBUTION WIDTH 13.8 % (11.5-14.5); WHITE BLOOD COUNT 10.7 K/uL (4.8-10.8)
[2018-06-29 07:35] LABS: ALB/GLOB RATIO 1.2 (1.0-2.1); ALBUMIN 3.6 g/dL (3.5-5.0); ALT/SGPT 9 U/L (9-52); AST/SGOT 18 U/L (14-36); BLOOD UREA NITROGEN 37 mg/dL (7-17); CALCIUM 8.4 mg/dl (8.6-10.4); GFR NON-AFRICAN AMERICAN > 60
[2018-06-29 07:37] LABS: INR 1.9; PROTHROMBIN TIME 20.5 SECONDS (9.7-12.2)
[2018-06-29 08:00] VITALS: O2SAT 94
[2018-06-29] MEDS: CREON PO SCH ×2 (08:00→12:00)
[2018-06-29] MEDS: (Novolog) Insulin Aspart, Recombinant 100 u/ml 10 ml vial SC SCH ×2 (08:00→12:00)
[2018-06-29] MEDS: Budesonide 0.5 mg/2 ml Inhal Susp UD INH SCH (08:29)
[2018-06-29] MEDS: Arformoterol 15 mcg/2 ml Inh Sol INH SCH (08:29)
[2018-06-29 09:33] LABS: EOSINOPHIL 1 % (0-4); LYMPHOCYTE 4 % (20-40); MONOCYTE 3 % (0-10); NEUTROPHIL 92 % (50-75); PLATELET ESTIMATE NORMAL (NORMAL); TOTAL CELLS COUNTED 100
[2018-06-29 09:34] LABS: ANISOCYTOSIS SLIGHT
[2018-06-29] MEDS: guaiFENesin 600 mg ER Tab PO SCH (09:43)
[2018-06-29] MEDS: Saccharomyces Boulardi 250 mg Cap PO SCH (09:43)
--- NOTE | 2018-06-29 15:02 | CP.PCM.PN ---
Subjective - Date & Time of Evaluation Date of Evaluation: 06/29/18 Time of Evaluation: 15:02 - Subjective Subjective: PATIENT SEEN AND EXAMINED AT THE BEDSIDE Objective - Vital Signs/Intake and Output Vital Signs (last 24 hours): Temp Pulse Resp BP Pulse Ox 98.2 F 49 L 20 128/39 L 94 L 06/29/18 07:00 06/29/18 10:00 06/29/18 07:00 06/29/18 07:00 06/29/18 07:00 Intake and Output: 06/29/18 06/29/18 06:59 18:59 Intake Total 400 Balance 400 - Medications Medications: Current Medications Albuterol/Ipratropium (Duoneb 3 Mg/0.5 Mg (3 Ml) Ud) 3 ml INH RQ6 PRN PRN Reason: Shortness of Breath Last Admin: 06/28/18 08:35 Dose: 3 ml Arformoterol Tartrate (Brovana) 15 mcg INH RQ12 [facility] Last Admin: 06/29/18 08:29 Dose: 15 mcg Aspirin (Ecotrin) 81 mg PO DAILY [facility] Last Admin: 06/29/18 09:43 Dose: 81 mg Budesonide (Pulmicort Respules) 0.5 mg INH RQ12 [facility] Last Admin: 06/29/18 08:29 Dose: 0.5 mg Bupropion HCl (Wellbutrin) 100 mg PO BID [facility] Last Admin: 06/29/18 09:44 Dose: 100 mg Dextrose (Dextrose 50% Inj) 0 ml IV STAT PRN; Protocol PRN Reason: Hypoglycemia Protocol Dextrose (Glutose 15) 0 gm PO ONCE PRN; Protocol PRN Reason: Hypoglycemia Protocol Famotidine (Pepcid) 20 mg PO DAILY [facility] Last Admin: 06/29/18 09:44 Dose: 20 mg Glucagon (Glucagen Diagnostic Kit) 0 mg IM STAT PRN; Protocol PRN Reason: Hypoglycemia Protocol Guaifenesin (Mucinex La) 600 mg PO BID [facility] Last Admin: 06/29/18 09:43 Dose: 600 mg Guaifenesin/Dextromethorphan (Robitussin Dm) 10 ml PO Q4H [facility] Last Admin: 06/29/18 14:41 Dose: 10 ml Home Med (Patient's Own Medication) 1 tab PO TIDCC [facility] Last Admin: 06/29/18 12:00 Dose: 1 tab Hydrochlorothiazide (Microzide) 12.5 mg PO DAILY [facility] Last Admin: 06/29/18 09:43 Dose: 12.5 mg Insulin Aspart (Novolog) 0 unit SC ACHS [facility]; Protocol Last Admin: 06/29/18 12:00 Dose: 2 units Insulin Detemir (Levemir) 20 unit SC HS [facility] Last Admin: 06/28/18 21:52 Dose: 20 units Losartan Potassium (Cozaar) 50 mg PO DAILY [facility] Last Admin: 06/29/18 09:43 Dose: 50 mg Methylprednisolone (Solu-Medrol) 20 mg IV Q12 [facility] Montelukast Sodium (Singulair) 10 mg PO DAILY [facility] Last Admin: 06/29/18 09:44 Dose: 10 mg Nicotine (Nicoderm Cq) 1 patch TD DAILY [facility] Last Admin: 06/29/18 09:43 Dose: 1 patch Pioglitazone HCl (Actos) 15 mg PO DAILY [facility] Last Admin: 06/29/18 09:42 Dose: 15 mg Saccharomyces Boulardii (Florastor) 250 mg PO BID [facility] Last Admin: 06/29/18 09:43 Dose: 250 mg - Labs Labs: 06/29/18 07:19 06/29/18 07:19 PT 20.5 SECONDS (9.7-12.2) H D 06/29/18 07:19 INR 1.9 D 06/29/18 07:19 APTT 38 SECONDS (21-34) H 06/29/18 07:19 Assessment and Plan - Assessment and Plan (Free Text) Assessment: FOLLOW UP WITH DR BATISTA IN HIS OFFICE -------CALL FOR APPOINTMENT FOLLOW UP WITH DR REYNOLDS IN HIS OFFICE CONTINUE HOME MEDICATION NEW PRESCRIPTION GIVEN LEVAQUIN 500 MG PO DAILY PREDNISONE TAPER 20 MG PO Q8 FOR 3 DAYS THEN 20 PO BID FOR 3 DAYS THEN 20 MG PO DAILY FOR 3 DAYS ACTIVITY TOLERATED CALL DR BATISTA OR GO TO THE EMERGENCY ROOM IF SYMPTOM RETURN OR WORSENING
[2018-06-29 16:16] VITALS: BP 127/64; PULSE 71; TEMP 98.5
--- NOTE | 2018-06-29 22:42 | PN ---
DATE: 06/28/2018 LATE ENTRY DAILY PROGRESS NOTE SUBJECTIVE: The patient was seen on 06/28/2018. She was still having wheezing, and currently she was on steroids. PHYSICAL EXAMINATION: VITAL SIGNS: Blood pressure 111/61, temperature 97.5, respiratory rate 20, and pulse 80. HEENT: Pupils equal and reactive to light. Normal-appearing mucosa of the conjunctivae, oropharynx, and nasal membrane mucosa. NECK: Supple. No JVD. No carotid bruit. No lymph nodes. No thyromegaly. CHEST AND LUNGS: Bilateral scattered rhonchi all over lung [place]. CARDIOVASCULAR SYSTEM: PMI not localized. S1 and S2. No additional sounds. ABDOMEN: Normoactive bowel sounds. No tenderness. No organomegaly. No masses. EXTREMITIES: No cyanosis. No clubbing. No edema. CENTRAL NERVOUS SYSTEM: Alert, awake, and oriented x2. No neurological deficits could be appreciated. ASSESSMENT: Exacerbation of chronic obstructive pulmonary disease, acute bronchitis, clinical pneumonia, hypertension, type 2 diabetes mellitus, coronary artery disease, status post coronary artery bypass graft. PLAN: Continue current steroids for one more day and bronchodilators. If the patient feels better and continues to show improvement, we will discharge her the following day. Ry Suárez MD
--- NOTE | 2018-06-30 17:17 | DS ---
REASON FOR ADMISSION This is a 77-year-old female with history of multiple medical problems, was admitted for exacerbation of chronic obstructive pulmonary disease. COURSE OF HOSPITALIZATION: The patient was admitted by hospitalist who are covering for me. The patient was started on IV antibiotics as well as bronchodilators and IV steroids. The patient's symptoms continued to improve and the patient was discharged home on Levaquin for five more days as well as tapered steroid dose. The patient was asked to follow with pulmonary consult, Dr. Leija as well as primary care physician. FINAL DIAGNOSES: 1. Exacerbation of chronic obstructive pulmonary disease. 2. Acute bronchitis. 3. Clinical pneumonia. 4. Hypertension. 5. Type 2 diabetes mellitus with hyperglycemia. 6. Coronary artery disease status post coronary artery bypass graft. [facility] MD Jose Armando
== END 2018-06-29 17:00 | disposition home health service (06) | DRG 190 ==
LOC: C.ER 11:50 → C.9E 14:42 → C.6T 16:06
PROVIDERS: ADMIT Internal Medicine; ATTEND Internal Medicine
DX: J43.9 Emphysema, unspecified (principal); J18.9 Pneumonia, unspecified organism; J20.9 Acute bronchitis, unspecified; I12.9 Hypertensive chronic kidney disease with stage 1 through stage 4 chronic kidney disease, or unspecified chronic kidney disease; E11.65 Type 2 diabetes mellitus with hyperglycemia; I25.3 Aneurysm of heart; I25.10 Atherosclerotic heart disease of native coronary artery without angina pectoris; N18.9 Chronic kidney disease, unspecified; E11.22 Type 2 diabetes mellitus with diabetic chronic kidney disease; R04.0 Epistaxis; M81.0 Age-related osteoporosis without current pathological fracture; M19.90 Unspecified osteoarthritis, unspecified site; E78.00 Pure hypercholesterolemia, unspecified; G47.33 Obstructive sleep apnea (adult) (pediatric); F17.210 Nicotine dependence, cigarettes, uncomplicated; Z96.1 Presence of intraocular lens; Z79.01 Long term (current) use of anticoagulants; Z79.4 Long term (current) use of insulin; Z86.010 Personal history of colon polyps; Z87.01 Personal history of pneumonia (recurrent); Z95.1 Presence of aortocoronary bypass graft; Z95.5 Presence of coronary angioplasty implant and graft; Z90.49 Acquired absence of other specified parts of digestive tract; Z87.81 Personal history of (healed) traumatic fracture; Z91.81 History of falling; Z98.42 Cataract extraction status, left eye; Z98.41 Cataract extraction status, right eye; Z83.3 Family history of diabetes mellitus

== ENCOUNTER 2018-07-02 16:59 | Emergency (ER) | payer MEDICARE, MEDICAID | END 2018-07-02 18:58 | disposition home or self-care (01) | LOC: C.ER 16:59 ==